=== PATIENT | female | born 1940 | race Caucasian/White ===

== ENCOUNTER 2017-08-20 05:52 | Inpatient (IN) | payer MEDICARE, BC ==
[2017-08-20 06:25] LABS: #Eosinphils 0.2 thou/uL (0.0-0.7); #Lymphocytes 0.7 thou/uL (1.20-3.40); #Neutrophils 12.8 thou/uL (1.40-6.50); %Basophils 0.1 % (0.0-1.0); %Eosinophils 1.1 % (0.0-10.0); %Lymphocytes 5.1 % (21.0-51.0); %Monocytes 6.8 % (0.0-10.0); Hemoglobin 16.6 g/dL (12.0-16.0); Mean Corpuscular HGB CONC 33.4 g/dL (32.0-36.0); Mean Corpuscular Hemoglobin 31.7 pg (27.0-31.0); Mean Corpuscular Volume 95.1 fl (81.0-99.0); Mean Platelet Volume 7.8 fL (7.4-10.4); Platelet Count 200 thou/uL (130-400); RBC Distribution Width 12.5 % (11.5-14.5); Red Blood Cell (RBC) Count 5.24 mill/uL (4.20-5.40); White Blood Cell (WBC) Count 14.7 thou/uL (4.8-10.8)
[2017-08-20 06:40] LABS: Bilirubin Negative (Negative); Blood, Urine Negative (Negative); Clarity CLEAR (Clear); Glucose, Urine (Dipstick) >=1000 mg/dL (Negative); Leukocyte Negative (Negative); Nitrite Negative (Negative); Protein, Urine (Dipstick) 30 mg/dL (Neg-Trace); Specific Gravity, Urine 1.016 (1.002-1.036); Urobilinogen 0.2 mg/dL (0.2-1.0); pH, Urine 6.5 (5.0-9.0)
[2017-08-20 06:43] LABS: Pathc Cast-AUWi Flag 0.67 (0-2.49); RBC/HPF 0-3 HPF (0-3); Squamous Epithelial 0-3 HPF (0-3); WBC/HPF 0-3 HPF (0-3)
[2017-08-20 06:45] LABS: ALT (SGPT) 32 U/L (8-55); AST (SGOT) 36 U/L (5-34); Albumin 4.3 g/dL (3.4-4.8); Alkaline Phosphatase 80 U/L (40-150); Anion Gap 20 mmol/L (10-20); BUN (Urea Nitrogen) 18 mg/dL (9.8-20.1); Bilirubin, Total 0.9 mg/dL (0.2-1.2); CK (CPK) 36 U/L (29-168); Calc. Creatinine Clearance 0 mL/min (70-130); Calcium 9.2 mg/dL (7.8-10.44); Carbon Dioxide 17 mmol/L (23-31); Chloride 100 mmol/L (98-107); Estimated GFR-MDRD 40; Globulin 3.3 g/dL (2.4-3.5); Glucose 358 mg/dL (83-110); Lipase 31 U/L (8-78); Potassium 5.1 mmol/L (3.5-5.1); Protein, Total 7.6 g/dL (6.0-8.3); Sodium 132 mmol/L (136-145)
[2017-08-20 06:50] LABS: CKMB 0.6 ng/mL (0-6.6); Troponin I Less than 0.010 ng/mL (< 0.028)
[2017-08-20 06:52] LABS: Hyaline Casts/LPF 0-3 HYALINE CAST LPF (0-3 Hyaline)
[2017-08-20 06:53] LABS: Bacteria/HPF Rare-Few HPF (None Seen); Renal Epithelial None Seen HPF (0-3); Transitional Epithelial 0-3 HPF (0-3)
[2017-08-20 07:21] LABS: Base Excess-Venous -3.6 mmol/L (-30.0-30.0); Bicarbonate (HCO3v) 22.5 mmol/L (1.0-85.0); CO2 Tension (PvCO2) 43.5 mmHg (41.0-51.0); Calcium, Ionized 1.08 mmol/L (1.12-1.32); Hemoglobin - Calc 15.6 g/dL (12.0-18.0); O2 Tension (PvO2) 30.7 mmHg (35.0-45.0); Potassium 5.5 mmol/L (3.4-4.7); T. Carbon Dioxide 23.8 mmol/L (1.0-85.0); pH (Venous) 7.322 (7.35-7.45); vO2 Saturation-calc 53.7 % (0.0-100.0)
--- NOTE | 2017-08-20 08:12 | RAD ---
RADIOGRAPH CHEST 1 VIEW: HISTORY: 77-year-old female with generalized weakness and dehydration. FINDINGS: There are no air space densities, pulmonary edema, pneumothorax, or cardiomegaly. The lateral costop hrenic angles are sharp. IMPRESSION: 1. No acute cardiopulmonary findings. 2. Left subclavian pacemaker. aleksandar laguna POS: ANTONIO
[2017-08-20] MEDS ORDERED: Mag-Al 1200 mg/1200 mg/30 ML UDCUP PO PRN (09:44)
[2017-08-20] MEDS ORDERED: Milk Of Magnesia 30 ML UDCUP PO PRN (09:44)
[2017-08-20] MEDS ORDERED: Dextrose 5% in Water 1,000 ML IV PRN (09:44)
[2017-08-20] MEDS ORDERED: Dextrose 50% Abboject 50 ML SYRINGE SLOW IVP PRN (09:44)
[2017-08-20] MEDS ORDERED: Acetaminophen 325 MG TAB PO PRN ×2 (09:44→09:45)
[2017-08-20] MEDS ORDERED: hydrALAZINE 20 MG/ML VIAL SLOW IVP PRN (09:44)
[2017-08-20] MEDS ORDERED: Sodium Chloride 0.9% 1,000 ML IV SCH (09:44)
[2017-08-20] MEDS ORDERED: HumaLOG 300 UNITS/3 ML VIAL SC PRN (09:44)
[2017-08-20] MEDS ORDERED: Ondansetron ODT 4 MG TAB SL PRN (09:45)
[2017-08-20] MEDS ORDERED: Ondansetron HCl/PF 4 MG/2 ML Vial IVP PRN (09:45)
[2017-08-20 10:01] LABS: Troponin I 0.021 ng/mL (< 0.028)
[2017-08-20] MEDS ORDERED: Enoxaparin Sodium 30 MG/0.3 ML SYRINGE SC SCH (10:15)
[2017-08-20] MEDS ORDERED: Famotidine 20 MG TAB PO SCH (10:30)
[2017-08-20 10:51] VITALS: BMI 27.4
[2017-08-20] MEDS: Sodium Chloride 0.9% 1,000 ML IV SCH ×2 (12:11→21:13)
[2017-08-20 13:12] LABS: Troponin I Less than 0.010 ng/mL (< 0.028)
[2017-08-20] MEDS ORDERED: FLU VACC TS2017-18 (>65YR) 0.5 ML SYRINGE IM ONE (14:00)
--- NOTE | 2017-08-20 14:00 | HP ---
PRIMARY CARE PHYSICIAN: The patient does not have a primary care physician. She sees Dr. Shorty lord or her primary. CHIEF COMPLAINT: "I could not get up." HISTORY OF PRESENT ILLNESS: Ms. Farmer is a pleasant 77-year-old female that has a history of atria l fibrillation, diabetes mellitus, and hypothyroidism. She was in her usual state of health until ab out 2 days ago when she began having diarrhea. She has some degree of dementia, so she is unable to give me a quantitative assessment of how much. Her is at the bedside and says that he and hi s son had quite a bit of diarrhea for the last week and says that she had less, but over the past 2 d ays. She says it was watery, but there was no blood. She did have some cramping abdominal pain. No fevers or chills. No nausea or vomiting and she was on the commode early this morning around 3:30-4 :00 a.m. and could not get up from the seated position. They called EMS and brought her to the emerg ency room for evaluation. In the ER, it was found that she has a slightly elevated white blood cell count. Her creatinine is slightly elevated as well and her potassium and she is being placed on obse rvation. REVIEW OF SYSTEMS: Constitutional: No fevers or chills, no night sweats, no weight loss. HEENT: N o headaches, no dizziness, no visual changes, no sore throat, rhinorrhea, neck pain, no adenopathy. Pulmonary: No hemoptysis, no cough, no wheezing. Cardiovascular: No chest pain, no shortness of br eath, no PND, no orthopnea. Gastrointestinal: She did have some cramping abdominal pain, but no ninfa sea, no vomiting, and diarrhea as previously mentioned. Genitourinary: No urinary frequency, hematu maksim, or hesitancy. Neurologic: No focal weakness or numbness, no seizures. Psychiatric: No sympto ms of anxiety or depression. Skin and Integument: No skin changes. No rash. PAST MEDICAL HISTORY: Significant for atrial fibrillation, diabetes mellitus, hyperlipidemia, hypert ension, hypothyroidism, and dementia. PAST SURGICAL HISTORY: She has had a C-spine surgery, cholecystectomy, hysterectomy, tonsillectomy, left thumb surgery, right shoulder surgery. ALLERGIES: No known drug allergies. SOCIAL HISTORY: She lives at home with family. She is a former smoker, no drug use, no alcohol use. FAMILY HISTORY: Unknown, as she is adopted. MEDICATIONS: Her says these are only some of them and they include donepezil 10 mg daily, fe nofibrate 160 mg daily, propafenone 225 mg q.8 hours, glimepiride 4 mg daily, digoxin 0.125 mg daily, and risperidone 0.5 mg daily. PHYSICAL EXAMINATION: GENERAL: She is alert and oriented to person and place. VITAL SIGNS: Her blood pressure initially was 86/60, currently 130/50; heart rate 81; respiratory ra te of 16; temperature is 98.4. HEENT: Pupils are equal, round, and reactive. Extraocular muscles are intact. Sclerae are anicteri c. Throat, no erythema, no exudates. NECK: No adenopathy, no bruits. LUNGS: Clear. There is no wheezing and no rales. CARDIOVASCULAR: She has a normal S1 and S2. No S3 or S4. No murmurs, clicks, or rubs. ABDOMEN: Soft, nontender, nondistended. Positive for bowel sounds. There is no rebound or guarding . EXTREMITIES: There is no clubbing or cyanosis, no edema. NEUROLOGICALLY: The exam is grossly nonfocal with muscle strength is 5/5 in both her upper and lower extremities. LABORATORY RESULTS: Sodium 136, potassium 5.5, chloride is 103, CO2 is 17, BUN of 18, creatinine 1.2 8, glucose is 358. White blood cell count 14.7, hemoglobin 16.6, hematocrit is 49.8, platelet count is 200. The patient's EKG was sinus rhythm with some nonspecific ST-wave changes. Chest x-ray, the heart size appears normal with no infiltrate or effusions and this is by my reading. ASSESSMENT AND PLAN: This is a 77-year-old female that presents with what appears to be generalized weakness, following 2 days of diarrhea off and on. I suspect the weakness is likely as a result of s ome mild dehydration. Her creatinine is slightly elevated than her baseline, and also her potassium is slightly elevated, and this is likely as a result of volume depletion. She will be placed on obse rvation. We will give her another liter of IV fluids, get a PT and OT consult, and reevaluate her af ter she has been hydrated with regard to her general strength. We will also get a thyroid function t est if this has not already been done in the ER. Stool studies if obtainable. We will restart her u sual medications for diabetes mellitus, along with a sliding scale insulin, and we will need to obtai n the dose of her thyroid medication and restart this as appropriate as well.
[2017-08-20] MEDS ORDERED: Digoxin 0.5 MG/2 ML AMP SLOW IVP SCH (16:30)
[2017-08-20] MEDS: Glimepiride 4 MG TAB PO SCH (17:08)
[2017-08-20] MEDS: HumaLOG 300 UNITS/3 ML VIAL SC PRN (17:40)
[2017-08-20] MEDS: Vancomycin HCl 25 MG/ML Oral PO SCH ×2 (17:42→22:26)
[2017-08-20] MEDS ORDERED: Metoprolol Tartrate 5 MG/5 ML VIAL IVP SCH (18:15)
[2017-08-20] MEDS ORDERED: Vancomycin HCl 25 MG/ML Oral PO SCH (21:00)
[2017-08-20] MEDS: Propafenone HCl 150 MG TAB PO SCH (22:26)
[2017-08-20] MEDS: Apixaban 5 MG TAB PO SCH (22:26)
[2017-08-20] MEDS: Donepezil HCl 10 MG TAB PO SCH (22:27)
[2017-08-20] MEDS: Liothyronine Sodium 5 MCG TAB PO SCH (22:27)
[2017-08-21] MEDS: Propafenone HCl 150 MG TAB PO SCH ×2 (05:49→13:24)
[2017-08-21] MEDS: HumaLOG 300 UNITS/3 ML VIAL SC PRN ×3 (05:54→16:55)
[2017-08-21 05:55] LABS: #Eosinphils 0.1 thou/uL (0.0-0.7); #Lymphocytes 1.1 thou/uL (1.20-3.40); #Monocytes 0.9 thou/uL (0.11-0.59); #Neutrophils 4.2 thou/uL (1.40-6.50); %Basophils 0.2 % (0.0-1.0); %Eosinophils 1.4 % (0.0-10.0); %Lymphocytes 17.6 % (21.0-51.0); %Monocytes 13.7 % (0.0-10.0); %Neutrophils 67.1 % (42.0-75.0); Hemoglobin 14.5 g/dL (12.0-16.0); Mean Corpuscular HGB CONC 32.6 g/dL (32.0-36.0); Mean Corpuscular Hemoglobin 31.6 pg (27.0-31.0); Mean Corpuscular Volume 96.9 fl (81.0-99.0); Platelet Count 193 thou/uL (130-400); RBC Distribution Width 12.6 % (11.5-14.5); White Blood Cell (WBC) Count 6.3 thou/uL (4.8-10.8)
[2017-08-21 06:16] LABS: Anion Gap 13 mmol/L (10-20); BUN (Urea Nitrogen) 12 mg/dL (9.8-20.1); Calc. Creatinine Clearance 90 mL/min (70-130); Calcium 8.5 mg/dL (7.8-10.44); Carbon Dioxide 19 mmol/L (23-31); Chloride 109 mmol/L (98-107); Estimated GFR-MDRD 61; Glucose 251 mg/dL (83-110); Potassium 4.5 mmol/L (3.5-5.1); Sodium 136 mmol/L (136-145)
[2017-08-21] MEDS ORDERED: Enoxaparin Sodium 30 MG/0.3 ML SYRINGE SC SCH (09:00)
[2017-08-21] MEDS: Famotidine 20 MG TAB PO SCH (10:41)
[2017-08-21] MEDS: Fenofibrate Nanocrystallized 145 MG TAB PO SCH (10:41)
[2017-08-21] MEDS: Liothyronine Sodium 5 MCG TAB PO SCH ×2 (10:41→20:46)
[2017-08-21] MEDS: Atorvastatin Calcium 40 MG TAB PO SCH (10:42)
[2017-08-21] MEDS: Apixaban 5 MG TAB PO SCH ×2 (10:42→20:46)
[2017-08-21] MEDS: Vancomycin HCl 25 MG/ML Oral PO SCH ×4 (10:43→20:47)
[2017-08-21] MEDS: Digoxin 0.125 MG TAB PO SCH (10:43)
[2017-08-21] MEDS: Glimepiride 4 MG TAB PO SCH ×2 (10:44→16:54)
--- NOTE | 2017-08-21 12:00 | PDOC.PN ---
- Subjective Encounter Start Date: 08/21/17 Encounter Start Time: 11:58 Ms. Farmer was seen today in follow-up. She does not have any complaints today. She had a few loose stools this morning, but it has improved. - Objective Resuscitation Status: Resuscitation Status FULL:Full Resuscitation MAR Reviewed: Yes Vital Signs & Weight: Vital Signs (12 hours) Temp Pulse Resp BP BP BP BP 08/21/17 10:43 67 08/21/17 09:35 110/66 116/66 112/66 118/68 08/21/17 08:00 97.5 F L 60 20 08/21/17 04:35 97.8 F 65 16 BP Pulse Ox 08/21/17 10:43 08/21/17 09:35 08/21/17 08:00 105/40 L 93 L 08/21/17 04:35 119/51 L 95 Weight Weight 245 lb I&O: 08/20/17 08/21/17 08/22/17 06:59 06:59 06:59 Intake Total 3191 Balance 3191 Result Diagrams: 08/21/17 04:55 08/21/17 04:55 Additional Labs: Accuchecks 08/21/17 08/21/17 08/20/17 10:52 05:55 22:23 POC Glucose 226 H 245 H 224 H 08/20/17 17:06 POC Glucose 232 H Phys Exam - Physical Examination HEENT: PERRLA Respiratory: no wheezing, no rales, no rhonchi, clear to auscultation bilateral Cardiovascular: RRR, no significant murmur Gastrointestinal: soft, non-tender, positive bowel sounds Musculoskeletal: no edema Dx/Plan (1) C. difficile diarrhea Code(s): A04.72 - ENTEROCOLITIS D/T CLOSTRIDIUM DIFFICILE, NOT SPCF RECUR Status: Acute (2) Generalized weakness Code(s): R53.1 - WEAKNESS Status: Acute (3) Afib Code(s): I48.91 - UNSPECIFIED ATRIAL FIBRILLATION Status: Acute (4) Dementia Code(s): F03.90 - UNSPECIFIED DEMENTIA WITHOUT BEHAVIORAL DISTURBANCE Status: Acute - Plan * C. Diff diarrhea- she is reported to have less stools this morning * AFIB- she had an episode of RVR last night- which has improved- this was likely because she missed a dose of her medications * Generalized weakness- improved * Hopefully home this evening or tomorrow.
[2017-08-21] MEDS ORDERED: Ondansetron HCl/PF 4 MG/2 ML Vial IVP PRN (16:18)
[2017-08-21] MEDS ORDERED: Ondansetron ODT 4 MG TAB PO PRN (16:18)
[2017-08-21] MEDS: Donepezil HCl 10 MG TAB PO SCH (20:46)
[2017-08-21] MEDS: risperiDONE 1 MG TAB PO SCH (20:46)
[2017-08-21] MEDS: Amiodarone 200 MG TAB PO SCH (20:46)
--- NOTE | 2017-08-22 04:11 | CON ---
DATE OF CONSULTATION: 08/21/2017 HISTORY: Amanda Lewis is a 77-year-old white female that I initially evaluated in 10/1999. At that time, she began to have some chest burning radiating to her right arm and elbow. This would occur while she was driving to work and lasted for many hours. She went to the emergency room and was seen by her physician Dr. Bailey. Apparently, her cardiac enzymes were normal. The following day, she underwent treadmill testing. She had inverted T-waves in aVL in the rest EKG. She exercised for 6 minutes 11 seconds. At 5 minutes and 50 seconds, she begin to have the same type of chest discomfort with approximately [address] segment depression in leads II, III, F, V4, V5 and V6, which resolved within 2 minutes. Her pain also resolved within 2 minutes into recovery. She was placed on aspirin and metoprolol and referred for further evaluation. The following day, she had an episode that awakened her at night, radiating to her back and apparently lasted all night. She denies any nausea, vomiting, diaphoresis or shortness of breath. She underwent catheterization, had normal left ventricular function with ejection fraction of 55% to 60%. There was a 40% proximal LAD lesion, but otherwise unremarkable coronary arteries. It was felt that her chest discomfort was not cardiac in nature. She had some pleuritic component to the pain as well as pain lasting 10 to 12 hours and is felt this is probably more chest wall in nature. I continued to rarely see her over the years. In 12/2008, she complained of chest discomfort, which seemed more chest wall in nature. She was placed on ibuprofen. In 03/2009, she was seen and not having any further chest discomfort. I did not see her from 2008 until she was admitted in 09/2014. Two weeks prior to that admission, she was supine in bed, had a feeling of palpitations. She described feeling of her heart pounding, but it did not seem to be very fast. She was asked multiple times and both the patient and her denied that she had any chest discomfort at that time. This would last approximately 1 minute and her thinks it was related to her anger issues and once he was able to calm her down, this resolved. When she was admitted in 09/2014, she had an episode of syncope. She also had episodes of syncope in 1985 or 1986 when she was unresponsive for several minutes. Her states that the current episode in 09/2014 was somewhat similar. She had gotten a prescription from a psychiatrist that she had been seeing regarding her dementia and anger issues. They were at [facility] to pick this up and apparently she fell to the ground. Her stated that it seemed like she was not breathing. No one palpated for a pulse. She did not have any fecal or urinary incontinence. There were no tonic-clonic movements and no tongue biting. She was apparently unresponsive for 3 to 4 minutes and then regained consciousness and was alert and oriented. Cardiac enzymes and serial EKGs were unremarkable. She did have mild sinus bradycardia with heart rates in the 50s. Echo revealed normal left ventricular function with evidence of diastolic dysfunction. There was mild mitral regurgitation and mild tricuspid regurgitation. CT of the brain in the emergency room was unremarkable. Chest CT revealed lymphadenopathy and also coronary artery calcification. There was no evidence of pulmonary embolism. She was seen by Electrophysiology and an implantable loop recorder was placed. On monitoring the implantable loop recorder, trout farmer found that she had a 4-second pause. She also had frequent episodes of atrial fibrillation, some lasting up to 6 hours and she was placed on Eliquis. She came to the office for followup and was found to be in atrial fibrillation with fast ventricular response of 171 per minute. She denied any chest pain or shortness of breath. With obvious sick sinus syndrome, she was admitted from the office. Eliquis was held and pacemaker was placed. She was then placed on propafenone. In the hospital, this seemed to control her atrial fibrillation. There was some concern about Multaq given her newly psychotropic medications. Eliquis was restarted 5 days after pacemaker placement. She was then readmitted in early 01/2015. Her checked her pulse and blood pressure and noted that the heart rate was very fast. She also felt the heart rate being fast and ultimately came to the emergency room. She was in atrial fibrillation with rate of 177 per minute. Her device was interrogated. She had episodes of atrial fibrillation with rates as high as 194. Longest episode was one and a half hours with average ventricular rate of 135 per minute. Her dose of propafenone was increased to 225 t.i.d. Digoxin was added for better rate control when she would go into atrial fibrillation. She has continued to be follow in the office since that time. Her dose of metoprolol has been gradually increased, trying to slow her atrial fibrillation rate whenever she would develop that. In 02/2017, propafenone was discontinued since she continued to have episodes of heart rates up to 200 per minute. She was placed on Multaq 400 b.i.d. But when she was seen again in the office in on the pacemaker, she continued to have episodes of fast ventricular rate. We discussed the possibility of AV node ablation. She now is admitted with 2 to 3 days of watery diarrhea and mild dehydration. She denies any chest pain or shortness of breath. It has been noted on the monitor that she has episodes of atrial fibrillation with fast ventricular response with rates up to 150s to 160s. Pacemaker was interrogated and she has 2.7% atrial fibrillation burden since she was last checked on 07/20/2017. She has had 34 episodes of atrial fibrillation, the longest being 9 hours and 13 minutes. At times she did have heart rates up to 180 per minute. She denies any chest pains, palpitations or shortness of breath. PAST MEDICAL HISTORY: Diabetes, mildly elevated cholesterol, history of hypertension, coronary artery disease, hypothyroidism, and dementia. OPERATIONS: Cervical spine surgery, pacemaker placement, cholecystectomy, hysterectomy, tonsillectomy, left thumb surgery and right shoulder surgery. MEDICATIONS: Multaq 400 mg b.i.d. (she is not on the propafenone 225 t.i.d. as listed on her admission medications), Eliquis 5 b.i.d., metoprolol 200 daily, sertraline 50 daily, liothyronine 5 mcg b.i.d., atorvastatin 40 daily, glimepiride 4 mg b.i.d., TriCor 160 daily, digoxin 0.125 daily, Risperdal 0.5 at bedtime, donepezil 10 mg at bedtime, and vancomycin 125 mg q.i.d. SOCIAL HISTORY: She smoked 3 packs per day for 6 years, stopped 47 years ago. She does not drink. 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 FAMILY HISTORY: She was told that she was adopted; however, she states she is uncertain if that was true. REVIEW OF SYSTEMS: Twelve point review of systems is otherwise unremarkable. PHYSICAL EXAMINATION: VITAL SIGNS: Blood pressure 147/62, pulse of 60 atrially paced. HEENT: PERRL. NECK: Supple. CHEST: Clear. CARDIAC: S1 and S2 are normal without any S3, S4 or murmurs. ABDOMEN: Normal bowel sounds without tenderness, organomegaly or masses. EXTREMITIES: Revealed no clubbing, cyanosis or edema. NEUROLOGIC: Grossly intact. SKIN: Warm and dry. LABORATORY DATA: EKG reveals normal sinus rhythm, poor R-wave progression. Hemoglobin 14.5, hematocrit 44.6, white count 6300, platelets 193,000. Sodium 136, potassium 4.5, chloride 109, carbon dioxide 19, BUN 12, creatinine 0.89. Cardiac enzymes were unremarkable. IMPRESSION: 1. Sick sinus syndrome with pauses up to 4.0 seconds with pacemaker placement as well as episodes of atrial fibrillation with fast ventricular response, which is difficult to control. She is on maximum dose of metoprolol and also is on digoxin. 2. History of syncope prior to pacemaker placement probably due to the sinus pauses. 3. Minimal coronary artery disease with 40% left anterior descending lesion on catheterization in the past. 4. Hypertension. 5. Hyperlipidemia. 6. Diabetes. 7. Former smoker. 8. Dementia. 9. Obesity. 10. Hypothyroidism. 11. Diarrhea. PLAN: Mrs. Farmer appears to have failed both propafenone and Multaq. We discussed options of trial of amiodarone versus atrial fibrillation ablation versus ablation of AV node. I feel our best option at this time would be try to maintain sinus rhythm with amiodarone. She hardly ever paces her ventricle and if she underwent AV node ablation then she would probably be 100% pacer dependent. We also discussed the possibility of atrial fibrillation ablation. Multaq will be discontinued. She will be placed on amiodarone 400 mg t.i.d. She should continue to be monitored for another 2 to 3 days with amiodarone loading and then continue this as an outpatient. Risks of Amiodarone therapy were discussed with the patient and her -lung, liver and thyroid toxicities, including , etc. She understands and agrees to proceed with Amiodarone loading. MTDD
[2017-08-22 06:07] LABS: Digoxin 0.72 ng/mL (0.8-2.0)
[2017-08-22] MEDS: Apixaban 5 MG TAB PO SCH ×2 (09:49→22:08)
[2017-08-22] MEDS: Amiodarone 200 MG TAB PO SCH ×3 (09:49→22:11)
[2017-08-22] MEDS: Vancomycin HCl 25 MG/ML Oral PO SCH ×4 (09:49→22:07)
[2017-08-22] MEDS: Glimepiride 4 MG TAB PO SCH ×2 (09:49→17:25)
[2017-08-22] MEDS: Famotidine 20 MG TAB PO SCH (09:50)
[2017-08-22] MEDS: Atorvastatin Calcium 40 MG TAB PO SCH (09:50)
[2017-08-22] MEDS: Digoxin 0.125 MG TAB PO SCH (09:50)
[2017-08-22] MEDS: Fenofibrate Nanocrystallized 145 MG TAB PO SCH (09:51)
[2017-08-22] MEDS: Liothyronine Sodium 5 MCG TAB PO SCH ×2 (09:51→22:08)
--- NOTE | 2017-08-22 11:22 | PDOC.PN ---
- Subjective Encounter Start Date: 08/22/17 Encounter Start Time: 09:40 -: old records requested/rev Pt seen and examined, chart reviewed in its entirety, case discussed with family and nursing, this is my first visit with this patient. no CP or SOb, no palpitations, no n/v/D/C, no F/C, no cough or sputum production. Seen earlier by Dr Bonner, cleared to go home otmorrow AM if no afib overnight. 10 point ROS performed and neg for all systems except as per HPI - Objective Resuscitation Status: Resuscitation Status FULL:Full Resuscitation MAR Reviewed: Yes Vital Signs & Weight: Vital Signs (12 hours) Temp Pulse Resp BP Pulse Ox 08/22/17 09:57 97.8 F 67 17 149/72 H 92 L 08/22/17 09:50 67 08/22/17 04:00 97.8 F 60 18 138/62 92 L 08/22/17 00:00 97.6 F 61 20 152/70 H 93 L Weight Weight 178 lb 11.2 oz I&O: 08/21/17 08/22/17 08/23/17 06:59 06:59 06:59 Intake Total 3191 1130 Balance 3191 1130 Result Diagrams: 08/21/17 04:55 08/21/17 04:55 Additional Labs: Accuchecks 08/22/17 08/21/17 08/21/17 06:11 20:39 16:54 POC Glucose 156 H 193 H 193 H Radiology Reviewed by me: Yes EKG Reviewed by me: Yes Phys Exam - Physical Examination Constitutional: NAD HEENT: PERRLA, moist MMs, sclera anicteric, oral pharynx no lesions Neck: no nodes, no JVD, supple, full ROM Respiratory: no wheezing, no rales, no rhonchi, clear to auscultation bilateral Cardiovascular: RRR, no significant murmur, no rub Gastrointestinal: soft, non-tender, no distention, positive bowel sounds Musculoskeletal: no edema, pulses present Neurological: non-focal, normal sensation, moves all 4 limbs Lymphatic: no nodes Psychiatric: normal affect, A&O x 3 Skin: no rash, normal turgor, cap refill <2 seconds Dx/Plan (1) Afib Code(s): I48.91 - UNSPECIFIED ATRIAL FIBRILLATION Status: Acute Qualifiers: Atrial fibrillation type: paroxysmal Qualified Code(s): I48.0 - Paroxysmal atrial fibrillation Comment: paced, in SR/paced rhythm. d/C in AM if no afib overnight (2) C. difficile diarrhea Code(s): A04.72 - ENTEROCOLITIS D/T CLOSTRIDIUM DIFFICILE, NOT SPCF RECUR Status: Acute Comment: on rx. dirrhea much better. out less than in (3) Dementia Code(s): F03.90 - UNSPECIFIED DEMENTIA WITHOUT BEHAVIORAL DISTURBANCE Status: Acute Qualifiers: Dementia type: unspecified type Dementia behavioral disturbance: without behavioral disturbance Qualified Code(s): F03.90 - Unspecified dementia without behavioral disturbance (4) Generalized weakness Code(s): R53.1 - WEAKNESS Status: Acute Comment: Pt/Ot, pt needs to get up (5) Sick sinus syndrome Code(s): I49.5 - SICK SINUS SYNDROME Status: Acute (6) Status post placement of implantable loop recorder Code(s): Z95.818 - PRESENCE OF OTHER CARDIAC IMPLANTS AND GRAFTS Status: Acute (7) Syncope Code(s): R55 - SYNCOPE AND COLLAPSE Status: Acute Qualifiers: Syncope type: unspecified Qualified Code(s): R55 - Syncope and collapse - Plan cont current plan of care, continue antibiotics, PT/OT, out of bed/ambulate * .
[2017-08-22] MEDS: HumaLOG 300 UNITS/3 ML VIAL SC PRN ×2 (13:15→17:26)
[2017-08-22] MEDS: Donepezil HCl 10 MG TAB PO SCH (22:08)
[2017-08-22] MEDS: risperiDONE 1 MG TAB PO SCH (22:08)
[2017-08-23 05:59] LABS: Hemoglobin 14.3 g/dL (12.0-16.0); Platelet Count 240 thou/uL (130-400)
[2017-08-23 06:21] LABS: Anion Gap 12 mmol/L (10-20); BUN (Urea Nitrogen) 11 mg/dL (9.8-20.1); Calc. Creatinine Clearance 66 mL/min (70-130); Calcium 9.2 mg/dL (7.8-10.44); Carbon Dioxide 28 mmol/L (23-31); Cardiac Risk 4.3 (Less than 4.5); Chloride 105 mmol/L (98-107); Cholesterol 100 mg/dl (< 200 Desired); Estimated GFR-MDRD 64; Glucose 151 mg/dL (83-110); HDL Cholesterol 23 mg/dL (>60 Neg Risk); LDL Cholesterol, Calculated 49 mg/dL; Potassium 3.9 mmol/L (3.5-5.1); Sodium 141 mmol/L (136-145); Triglycerides 139 mg/dL (Less than 150)
[2017-08-23] MEDS: Apixaban 5 MG TAB PO SCH (08:58)
[2017-08-23] MEDS: Liothyronine Sodium 5 MCG TAB PO SCH (08:59)
[2017-08-23] MEDS: Digoxin 0.125 MG TAB PO SCH (08:59)
[2017-08-23] MEDS: Fenofibrate Nanocrystallized 145 MG TAB PO SCH (09:00)
[2017-08-23] MEDS: Amiodarone 200 MG TAB PO SCH (09:00)
[2017-08-23] MEDS: Famotidine 20 MG TAB PO SCH (09:01)
[2017-08-23] MEDS: Atorvastatin Calcium 40 MG TAB PO SCH (09:01)
[2017-08-23] MEDS: Vancomycin HCl 25 MG/ML Oral PO SCH (09:02)
[2017-08-23] MEDS: Glimepiride 4 MG TAB PO SCH (09:02)
[2017-08-23 09:11] VITALS: TEMP 97.5
[2017-08-23] MEDS: HumaLOG 300 UNITS/3 ML VIAL SC PRN (11:55)
[2017-08-23 13:22] VITALS: BP 109/50
--- NOTE | 2017-08-23 14:20 | DIS ---
DATE OF ADMISSION: 08/20/2017 DATE OF DISCHARGE: 08/23/2017 PRIMARY CARE PHYSICIAN: Dr. Allan Oro. PRIMARY STRAIGHT LINE EDGER: Dr. Mark Bonner. DISCHARGE DIAGNOSES: 1. Paroxysmal atrial fibrillation. 2. Clostridium difficile colitis. 3. Moderate dehydration. 4. Metabolic encephalopathy. 5. Syncope and collapse. 6. Sick sinus syndrome. 7. Dementia. 8. Physical deconditioning. CONSULTATIONS: Cardiology, Dr. Mark Bonner, on 08/21/2017. PROCEDURES: None. HISTORY AND PHYSICAL: Ms. Farmer is a pleasant 77-year-old female, who was brought in for feeling t oo weak to get up. She was having diarrhea for about 2 days, and was subsequently brought to the emergency department fo r evaluation. She was having watery diarrhea, but no blood. She was having abdominal cramps and jus t could not get up from a seated position after multiple episodes. In the ER, she was found to have elevated white blood cell count and creatinine was up from her basel ine. We were subsequently called for admit. HOSPITAL COURSE: The patient was seen and examined by Dr. Román Kelly and placed on inpatient status . Stool studies were obtained that eventually came back positive for C. difficile colitis. She was started on vancomycin 125 mg p.o. q.i.d. Heart rate was elevated on admission. She was found to be in atrial fibrillation with RVR, so Cardio logy was consulted. Patient did fairly well from 08/20/2017-08/21/2017. She was seen by Dr. Mark Bonner in 8, and the patient was begun to be loaded on amiodarone. Heart rate became controlled, and on followup 08/22, the patient was improved and actually in sinus r hythm. Diarrhea had markedly improved and the patient was feeling much better. She was able to get up and walk around with Physical Therapy. By 08/23, patient was back in atrial fibrillation, Cardiology [facility] and continue loading of amiodarone and her diarrhea was well controlled. Physical therapy cleared to walk around, cleared her activity to be ad john. She was subsequently dis charged with outpatient followup. PHYSICAL EXAMINATION: The patient was seen and examined on the day of discharge. Discharge plan and disposition was discussed with the patient [id number] at the bedside with her hu sband. DISCHARGE MEDICATIONS: 1. Amiodarone 400 mg p.o. t.i.d. 2. Eliquis 5 mg p.o. b.i.d. 3. Atorvastatin 40 mg p.o. at bedtime. 4. Digoxin 0.125 mg p.o. daily. 5. Donepezil 10 mg p.o. at bedtime. 6. Fenofibrate 160 mg p.o. daily. 7. Glimepiride 4 mg p.o. b.i.d. with meals. 8. Liothyronine 5 mcg p.o. b.i.d. 9. Metoprolol succinate 200 mg p.o. daily. 10. Risperdal 0.5 mg p.o. at bedtime. 11. Sertraline 50 mg p.o. daily. 12. Vancomycin 125 mg p.o. q.i.d. for 10 days. FOLLOWUP APPOINTMENTS: 1. Primary care physician within a week. 2. Dr. Mark Bonner in 10 days. DISCHARGE ACTIVITY: Per cardiopulmonary limits. DISCHARGE DIET: Heart healthy, diabetic recommended. DISCHARGE CONDITION: Stable. DISPOSITION: To be discharged home via private vehicle with her .
--- NOTE | 2017-09-02 20:25 | EKG ---
Test Reason : Blood Pressure : / mmHG Vent. Rate : 084 BPM Atrial Rate : 084 BPM P-R Int : 152 ms QRS Dur : 068 ms QT Int : 368 ms P-R-T Axes : 050 022 054 degrees QTc Int : 434 ms Normal sinus rhythm Cannot rule out Anterior infarct , age undetermined Abnormal ECG Compared to ekg of 18-JUL-2015 Confirmed by ANOOP SIMMS MD ([id number]), newspaper editor KALI SMALLWOOD ([id number]) on 09/02/2017 8:25:06 PM Referred By: Confirmed By:ANOOP SIMMS MD
== END 2017-08-23 12:30 | disposition home or self-care (01) | DRG 371 ==
LOC: ERS 05:52 → ERHOLD 07:46 → 2SE 09:22
PROVIDERS: ADMIT Internal Medicine; ATTEND Internal Medicine
DX: A04.72 Enterocolitis due to Clostridium difficile, not specified as recurrent (principal); G93.41 Metabolic encephalopathy; I48.0 Paroxysmal atrial fibrillation; E86.0 Dehydration; E11.9 Type 2 diabetes mellitus without complications; F03.90 Unspecified dementia, unspecified severity, without behavioral disturbance, psychotic disturbance, mood disturbance, and anxiety; E78.5 Hyperlipidemia, unspecified; E66.9 Obesity, unspecified; E03.9 Hypothyroidism, unspecified; I10 Essential (primary) hypertension; Z87.891 Personal history of nicotine dependence; I25.10 Atherosclerotic heart disease of native coronary artery without angina pectoris; Z95.0 Presence of cardiac pacemaker; Z68.27 Body mass index [BMI] 27.0-27.9, adult
CPT/HCPCS: 36415; 36416; 51701; 71045; 80048; 80053; 80061; 80162; 81003; 81015; 82010; 82330; 82553; 82565; 82803; 83605; 83690; 83880; 84484; 85014; 85018; 85025; 85049; 87086; 87324; 87328; 87329; 87449; 87493; 90471; 90682; 93005; 96360; A4353; G0008; G8978-GP-CJ; G8979-GP-CJ; G8980-GP-CJ; G8987-GO-CI; G8988-GO-CI; G8989-GO-CI; J1160; J1650; J2405; Q2036

== ENCOUNTER 2018-04-09 10:51 | Outpatient (CLI) | payer MEDICARE, BC | END 2018-04-09 10:52 | disposition home or self-care (01) | LOC: BICMAMMO 10:51 | PROVIDERS: ATTEND Internal Medicine Endocrinology, Diabetes & Metabolism | DX: Z12.31 Encounter for screening mammogram for malignant neoplasm of breast (principal) | CPT/HCPCS: 77063; 77067 ==

== ENCOUNTER 2018-06-01 11:54 | Emergency (ER) | payer MEDICARE | END 2018-06-01 13:06 | disposition home or self-care (01) | LOC: SCSER 11:54 | DX: J06.9 Acute upper respiratory infection, unspecified (principal); E11.9 Type 2 diabetes mellitus without complications; I10 Essential (primary) hypertension; I48.91 Unspecified atrial fibrillation; F03.90 Unspecified dementia, unspecified severity, without behavioral disturbance, psychotic disturbance, mood disturbance, and anxiety; F41.9 Anxiety disorder, unspecified; F32.9 Major depressive disorder, single episode, unspecified | CPT/HCPCS: 99283 ==

== ENCOUNTER 2019-07-05 21:18 | Inpatient (IN) | payer MEDICARE ==
[2019-07-05 22:38] LABS: Bacteria/HPF None Seen HPF (None Seen); Bilirubin Negative (Negative); Blood, Urine Trace (Negative); Clarity Clear (Clear); Glucose, Urine (Dipstick) Greater than 1000 mg/dL (Negative); Leukocyte Negative Leu/uL (Negative); Nitrite Negative (Negative); Protein, Urine (Dipstick) 100 mg/dL (Neg-Trace); RBC/HPF 0-3 HPF (0-3); Squamous Epithelial 0-3 HPF (0-3); Urobilinogen Normal mg/dL (Less than 2); WBC/HPF 0-3 HPF (0-3)
--- NOTE | 2019-07-05 22:39 | RAD ---
PORTABLE UPRIGHT FRONTAL CHEST RADIOGRAPH: 07/05/19 COMPARISON: 08/20/17. HISTORY: Shortness of breath and dizziness. FINDINGS/IMPRESSION: Cardiac silhouette is enlarged. There is increased linear interstitial density in the perihilar regio ns in both lung bases which may signify mild interstitial edema in the proper clinical setting. Stabl e dual lead transvenous pacing device. Possible mild interstitial pulmonary edema. No focal consolidation or alveolar edema. POS: ANTONIO
[2019-07-05 22:44] LABS: #Eosinphils 0.2 thou/uL (0.0-0.7); #Lymphocytes 1.2 thou/uL (1.20-3.40); #Monocytes 0.8 thou/uL (0.11-0.59); #Neutrophils 8.7 thou/uL (1.40-6.50); %Basophils 0.2 % (0.0-1.0); %Eosinophils 1.7 % (0.0-10.0); %Lymphocytes 10.6 % (21.0-51.0); %Monocytes 7.1 % (0.0-10.0); %Neutrophils 80.3 % (42.0-75.0); Hemoglobin 14.2 g/dL (12.0-16.0); Mean Corpuscular HGB CONC 33.1 g/dL (32.0-36.0); Mean Corpuscular Hemoglobin 30.1 pg (27.0-31.0); Mean Corpuscular Volume 90.8 fL (78.0-98.0); Mean Platelet Volume 9.2 fL (7.4-10.4); Platelet Count 218 thou/uL (130-400); RBC Distribution Width 14.2 % (11.5-14.5); Red Blood Cell (RBC) Count 4.72 mill/uL (4.20-5.40); White Blood Cell (WBC) Count 10.8 thou/uL (4.8-10.8)
[2019-07-05 23:01] LABS: ALT (SGPT) 25 U/L (8-55); AST (SGOT) 19 U/L (5-34); Albumin 3.6 g/dL (3.4-4.8); Alkaline Phosphatase 123 U/L (40-110); Anion Gap 18 mmol/L (10-20); BUN (Urea Nitrogen) 14 mg/dL (9.8-20.1); Bilirubin, Total 0.6 mg/dL (0.2-1.2); Calc. Creatinine Clearance 0 mL/min (70-130); Calcium 8.8 mg/dL (7.8-10.44); Carbon Dioxide 18 mmol/L (23-31); Chloride 103 mmol/L (98-107); Estimated GFR-MDRD 38; Glucose 446 mg/dL (83-110); Potassium 4.1 mmol/L (3.5-5.1); Protein, Total 6.6 g/dL (6.0-8.3); Sodium 135 mmol/L (136-145)
[2019-07-05 23:02] LABS: Digoxin Less than 0.15 ng/mL (0.8-2.0)
[2019-07-05] MEDS ORDERED: cefTRIAXone\\ROCEPHIN 1 GM VIAL ONE (23:17)
[2019-07-05] MEDS ORDERED: Magnesium 2 GM/50 ML BAG (IN WATER) ONE (23:17)
[2019-07-06] MEDS ORDERED: Diltiazem 125 MG/25 ML ONE (00:24)
[2019-07-06] MEDS ORDERED: Furosemide 20 MG/2 ML VIAL ONE (00:41)
--- NOTE | 2019-07-06 01:47 | PDOC.FPRHP ---
- History of Present Illness Chief Complaint: Dyspnea History of Present Illness: Pt is an 79 yo female with PMH significant for a-fib, DM, mild dementia, and CHF who presents for shortness of breath. She began with SOB at home. Her son decided to call for an EMS who found her HR to be in the 140's-150's, a-fib w/ RVR. She was given dilt on the scene and transferred to the emergency department. A dilt drip was initiated controlled her shortness of breath. Upon further discussion with the son, he states his father was recently in the hospital and now at [facility]. He has been trying to take care of both of them but it has been difficult and he believes he forgot to give his mother some of her medications including digoxin. Pt denied any chest pain, shortness during the interview. She is followed by Dr. Bonner, cardiology. Pt also has a lesion to her RLE, very minor, which she sustained while exiting her son's vehicle. ED Course: In the emergency department pt was started on a dilt drip for atrial fibrillation. Rate was controlled in the 90's after initiation. She was found to have BNP 331, LE edema so given Lasix 20 IV once. Mild increase in creatinine to 1.33. D-dimer was elevated with negative CTA. Dig level, home medication, was found to be supratherapeutic. Dig was not restarted. Pt did have a RLE cellulitis, rocephin started. - Allergies/Adverse Reactions Allergies Allergy/AdvReac Type Severity Reaction Status Date / Time No Known Allergies Allergy Verified 01/06/15 22:32 - Home Medications Medication Instructions Recorded Confirmed Type Fenofibrate [Tricor] 160 mg PO DAILY 09/16/14 08/20/17 History risperiDONE [RisperDAL] 0.5 mg PO HS 09/16/14 08/20/17 History Digoxin [Lanoxin] 0.125 mg PO DAILY #30 tab 01/09/15 08/20/17 Rx Apixaban [Eliquis] 5 mg PO BID 08/20/17 08/20/17 History Atorvastatin Calcium 40 mg PO DAILY 08/20/17 08/20/17 History Donepezil HCl 10 mg PO HS 08/20/17 08/20/17 History Glimepiride 4 mg PO BID-WM 08/20/17 08/20/17 History Liothyronine Sodium 5 mcg PO BID 08/20/17 08/20/17 History Metoprolol Succinate 200 mg PO DAILY 08/20/17 08/20/17 History Sertraline HCl 50 mg PO DAILY 08/20/17 08/20/17 History Vancomycin HCl [First Vancomycin] 125 mg PO QID 10 Days #250 ml 08/21/17 Rx Amiodarone [Cordarone] 400 mg PO TID #0 tab 08/23/17 Rx Vancomycin HCl 250 mg PO QID #28 capsule 08/25/17 Rx - History PMHx: a-fib, DM, dementia, CHF PSHx: Pacemaker, cholecystectomy, Hysterectomy, L shoulder repair FHx: non-contributory Social: denies alcohol, drugs, tobacco; lives with son, - Review of Systems General: denies: fever/chills, weight/appetite/sleep changes Eyes: denies: eye pain, vision changes ENT: denies: nasal congestion, rhinorrhea Respiratory: denies: cough, congestion, shortness of breath Cardiovascular: reports: palpitation. denies: chest pain Gastrointestinal: denies: nausea, vomiting, diarrhea, constipation Neurological: denies: numbness, syncope Psychological: denies: anxiety, depression - Vital signs BP: 109/18 HR: 100's RR: 16 Tmax: 98.5 Pox: 96% on RA Wt: 81.7 kg - Physical Exam Constitutional: NAD, awake, alert and oriented HEENT: PERRLA, EOMI Neck: FROM, trachea midline Heart: no murmurs/rubs/gallops, pulses present -Heart: irregular rate and rhythm; 2+ pitting edema bilaterally Lungs: CTAB, no respiratory distress Abdomen: soft, non-tender Neurological: no focal deficit, CN II-XII intact Skin: no rash/lesions Heme/Lymphatic: no purpura, no petechia Psychiatric: good judgment and insight FMR H&P: Results - Labs Result Diagrams: 07/06/19 02:12 07/06/19 02:12 Lab results: WBC 10.8 thou/uL (4.8-10.8) 07/05/19 22:34 Hgb 14.2 g/dL (12.0-16.0) 07/05/19 22:34 Hct 42.9 % (36.0-47.0) 07/05/19 22:34 MCV 90.8 fL (78.0-98.0) 07/05/19 22:34 Plt Count 218 thou/uL (130-400) 07/05/19 22:34 Neutrophils % 80.3 % (42.0-75.0) H 07/05/19 22:34 Sodium 135 mmol/L (136-145) L 07/05/19 22:34 Potassium 4.1 mmol/L (3.5-5.1) 07/05/19 22:34 Chloride 103 mmol/L (98-107) 07/05/19 22:34 Carbon Dioxide 18 mmol/L (23-31) L 07/05/19 22:34 BUN 14 mg/dL (9.8-20.1) 07/05/19 22:34 Creatinine 1.33 mg/dL (0.6-1.1) H 07/05/19 22:34 Glucose 446 mg/dL (83-110) H 07/05/19 22:34 Calcium 8.8 mg/dL (7.8-10.44) 07/05/19 22:34 Total Bilirubin 0.6 mg/dL (0.2-1.2) 07/05/19 22:34 AST 19 U/L (5-34) 07/05/19 22:34 ALT 25 U/L (8-55) 07/05/19 22:34 Alkaline Phosphatase 123 U/L (40-110) H 07/05/19 22:34 B-Natriuretic Peptide 331.2 pg/mL (0-100) H 07/05/19 22:34 Serum Total Protein 6.6 g/dL (6.0-8.3) 07/05/19 22:34 Albumin 3.6 g/dL (3.4-4.8) 07/05/19 22:34 Urine Ketones Negative mg/dL (Negative) 07/05/19 21:53 Urine Blood Trace (Negative) A 07/05/19 21:53 Urine Nitrite Negative (Negative) 07/05/19 21:53 Ur Leukocyte Esterase Negative Davey/uL (Negative) 07/05/19 21:53 Urine RBC 0-3 HPF (0-3) 07/05/19 21:53 Urine WBC 0-3 HPF (0-3) 07/05/19 21:53 Ur Squamous Epith Cells 0-3 HPF (0-3) 07/05/19 21:53 Urine Bacteria None Seen HPF (None Seen) 07/05/19 21:53 - EKG Interpretation EKG: EKG revealed atrial fibrillation FMR H&P: A/P - Problem List (1) Diabetes mellitus Current Visit: Yes Status: Acute Code(s): E11.9 - TYPE 2 DIABETES MELLITUS WITHOUT COMPLICATIONS (2) Cellulitis Current Visit: Yes Status: Acute Code(s): L03.90 - CELLULITIS, UNSPECIFIED (3) Heart failure Current Visit: Yes Status: Acute Code(s): I50.9 - HEART FAILURE, UNSPECIFIED (4) Afib Current Visit: No Status: Acute Code(s): I48.91 - UNSPECIFIED ATRIAL FIBRILLATION Qualifiers: Atrial fibrillation type: paroxysmal Qualified Code(s): I48.0 - Paroxysmal atrial fibrillation Comment: paced, in SR/paced rhythm. d/C in AM if no afib overnight (5) Dementia Current Visit: No Status: Acute Code(s): F03.90 - UNSPECIFIED DEMENTIA WITHOUT BEHAVIORAL DISTURBANCE Qualifiers: Dementia type: unspecified type Dementia behavioral disturbance: without behavioral disturbance Qualified Code(s): F03.90 - Unspecified dementia without behavioral disturbance - Plan Mrs. Farmer is an 79 yo female who presents for atrial fibrillation. # Atrial Fibrillation Hx of a-fib but unsure the medications she is taking. Son did state he forgot to give doses of digoxin. Did not load dig or restart bc we did not know her regular dose, son was going to bring in medications later this morning. - continue dilt drip - restarted apixiban from and old med req - med req needed - trop negative - low digoxin level # Cellulitis Rocephin given in the emergency department - continue rocephin, next dose 2330 tonight, can change to PO # CHF Diastolic dysfunction in 2014 on echo. BNP elevated, likely secondary to atrial fibrillation. Lasix given in the emergency department. - did not continue lasix at this time but should consider another dose. # DM Med reconciliation needed - SSI # Mild Dementia AAO x 3 Fluids: none Diet: Low sodium VTE: Apixiban Code: Full Dispo: < 2 days FMR H&P: Upper Level - Plan Date/Time: 07/06/19 0145 I, Devin Colin MD, have evaluated this patient and agree with findings/plan as outlined by international exchange coordinator resident. Pertinent changes/additions are listed here. Amanda Farmer is an 79 year old F with a PMH of CHF, DM2, A fib, Dementia who presented to the ED for palpitations and dyspnea and dizziness that started earlier in the day. Has a history a fib and son manages medications and states that they have missed some doses of her medications recently because they have been busy. Pt's has been at rehab. When EMS arrived at home, patients HR was in the 180s. Pt given 20 mg bolus of cardizem and was started on maintenance gtt at 25 ml/hr. She was also given 1 L NS. Also notable, patient hit right lower extremity on running board of truck a couple weeks ago. For the last few days, she has had increased redness and pain around that wound. Denies fever, chills, drainage. HR improved in the ED and ranged in the 90s- 120s. EKG in ED showed A fib with RVR. No ST changes. Diltizem gtt was continued at 5 mg/hr. BPs remained stable in ED and symptoms improved. Labs significant for UA with >1000 gluc, protein 100, trace blood. WBC 10.8, Hg 14. Cr 1.33. Serum glucose 446. BNP 331, trop <0.01, Digoxin level < 0.15, D dimer 1.16. Patient's bridge instructor is Dr. Bonner. Will restart patient's digoxin and continue dilt gtt. Admit to inpatient tele. A fib with RVR likely 2/2 medication noncompliance and possible mild cellulitis. Continue rocephin for cellulitis. Please see international exchange coordinator note above for full H&P, which I have reviewed and agree with.
[2019-07-06] MEDS ORDERED: Dextrose 5% in Water 1,000 ML IV PRN (02:01)
[2019-07-06] MEDS ORDERED: Dextrose 50% Abboject 50 ML SYRINGE SLOW IVP PRN (02:01)
[2019-07-06 02:21] LABS: #Basophils 0.1 thou/uL (0.0-0.2); #Eosinphils 0.2 thou/uL (0.0-0.7); #Lymphocytes 1.3 thou/uL (1.20-3.40); #Monocytes 0.8 thou/uL (0.11-0.59); #Neutrophils 7.8 thou/uL (1.40-6.50); %Basophils 0.9 % (0.0-1.0); %Eosinophils 2.3 % (0.0-10.0); %Lymphocytes 12.6 % (21.0-51.0); %Monocytes 7.7 % (0.0-10.0); %Neutrophils 76.5 % (42.0-75.0); Hemoglobin 14.7 g/dL (12.0-16.0); Mean Corpuscular HGB CONC 33.2 g/dL (32.0-36.0); Mean Corpuscular Hemoglobin 29.8 pg (27.0-31.0); Mean Corpuscular Volume 89.7 fL (78.0-98.0); Mean Platelet Volume 8.8 fL (7.4-10.4); Platelet Count 257 thou/uL (130-400); RBC Distribution Width 14.2 % (11.5-14.5); Red Blood Cell (RBC) Count 4.92 mill/uL (4.20-5.40); White Blood Cell (WBC) Count 10.2 thou/uL (4.8-10.8)
[2019-07-06] MEDS ORDERED: Diltiazem 125 MG in Sodium Chloride 0.9% 100 ML IVPB SCH (02:30)
[2019-07-06 02:45] LABS: Anion Gap 19 mmol/L (10-20); BUN (Urea Nitrogen) 16 mg/dL (9.8-20.1); Calc. Creatinine Clearance 0 mL/min (70-130); Calcium 9.2 mg/dL (7.8-10.44); Carbon Dioxide 19 mmol/L (23-31); Chloride 102 mmol/L (98-107); Estimated GFR-MDRD 36; Glucose 462 mg/dL (83-110); Potassium 4.2 mmol/L (3.5-5.1); Sodium 136 mmol/L (136-145); Troponin I Less than 0.010 ng/mL (< 0.028)
[2019-07-06] MEDS ORDERED: HumaLOG 300 UNITS/3 ML VIAL ONE (05:55)
[2019-07-06 06:29] LABS: Troponin I Less than 0.010 ng/mL (< 0.028)
--- NOTE | 2019-07-06 07:53 | CT ---
PRELIMINARY REPORT/[facility]/EMERGENCY AFTER HOURS PROCEDURE EXAM: CTA Chest with Intravenous Contrast CLINICAL HISTORY: ELEVATED D-DIMER: 1.16; 79F reports to ED c/o palpitations and SOB. PMHx CHF, diabe christine, AFib, dementia. Pt reports associated vomited. Pt denies feeling sick recently. Pt bumped her ri bry sullivan on truck runner several days ago TECHNIQUE: Axial CTA images of the chest with intravenous contrast. MIP reconstructed images were cre ated and reviewed. Exam DLP is 505.7. CONTRAST: With; 60ML ISOVUE 370 intravenous. COMPARISON: None provided. FINDINGS: PULMONARY ARTERIES: There is no intraluminal filling defect suspicious for PE. AORTA: Aortic atherosclerosis without aneurysm. LUNGS: No focal consolidations or pulmonary mass. Multilobar linear atelectasis and/or scarring. Diff use mixed lobular groundglass and air trapping. PLEURAL SPACES: No pleural effusion. No pneumothorax. HEART AND MEDIASTINUM: Left side pacemaker with leads in the right atrium and right ventricle. LYMPH NODES: Prominent mediastinal and hilar lymph nodes without pathologic enlargement. BONES: No focal osseous abnormality or acute fracture. CHEST WALL AND UPPER ABDOMEN: Status post cholecystectomy. Small simple cyst within the liver. Spleni c artery calcifications. IMPRESSION: 1. No evidence of pulmonary embolism. 2. Diffuse areas of groundglass and air trapping within the lungs without focal consolidation most c ompatible with a small airways process. 3. Dual lead pacemaker. ELECTRONICALLY SIGNED BY: Arthur Wilson M.D. Jul 06, 2019 12:41:50 AM GENERATOR TECHNICIAN FINAL REPORT EMERGENT AFTER HOURS CTA OF THE CHEST WITH CONTRAST: COMPARISON: 09/16/2014. FINDINGS/IMPRESSION: I agree with the findings and impression given in the preliminary report per [facility] physici an. No evidence of pulmonary thromboembolism.
[2019-07-06] MEDS ORDERED: Apixaban 5 MG TAB PO SCH (09:00)
[2019-07-06] MEDS: HumaLOG 300 UNITS/3 ML VIAL SC PRN ×2 (11:44→17:42)
[2019-07-06 13:11] VITALS: BMI 28.6
[2019-07-06] MEDS: Cephalexin 250 MG CAP PO SCH ×2 (17:43→23:23)
[2019-07-06] MEDS: Donepezil HCl 10 MG TAB PO SCH (20:52)
[2019-07-06] MEDS: Acetaminophen 325 MG TAB PO PRN (20:52)
[2019-07-06] MEDS: Apixaban 5 MG TAB PO SCH (20:53)
[2019-07-06] MEDS: Insulin Glargine 20 UNITS in Pre-Filled Syringe 1 EACH SC SCH (20:53)
[2019-07-06] MEDS: Metoprolol Tartrate 50 MG TAB PO SCH (20:53)
[2019-07-06] MEDS ORDERED: INSULIN DEGLUDEC 20 UNIT SQ SCH (21:00)
[2019-07-06] MEDS ORDERED: cefTRIAXone\\ROCEPHIN 1 GM in Sodium Chloride 0.9% 100 ML IVPB SCH (23:30)
[2019-07-07 05:18] LABS: #Basophils 0.1 thou/uL (0.0-0.2); #Eosinphils 0.3 thou/uL (0.0-0.7); #Lymphocytes 1.3 thou/uL (1.20-3.40); #Monocytes 0.9 thou/uL (0.11-0.59); #Neutrophils 5.2 thou/uL (1.40-6.50); %Basophils 1.1 % (0.0-1.0); %Eosinophils 4.2 % (0.0-10.0); %Lymphocytes 17.1 % (21.0-51.0); %Neutrophils 66.6 % (42.0-75.0); Hemoglobin 13.5 g/dL (12.0-16.0); Mean Corpuscular HGB CONC 33.3 g/dL (32.0-36.0); Mean Corpuscular Volume 90.1 fL (78.0-98.0); Mean Platelet Volume 8.7 fL (7.4-10.4); Platelet Count 210 thou/uL (130-400); Red Blood Cell (RBC) Count 4.48 mill/uL (4.20-5.40); White Blood Cell (WBC) Count 7.8 thou/uL (4.8-10.8)
--- NOTE | 2019-07-07 05:30 | PDOC.FM ---
- Subjective Subjective: Patient states she is doing well this morning. Denies chest pain, sob, n/v/d. On telemetry monitoring was in afib in the 130s on the cardizem drip and then she converted to NSR. The cardizem drip was stopped and the patient's rate has stayed in the 80s since then. - Objective Vital Signs & Weight: Vital Signs (12 hours) Temp Pulse Resp BP Pulse Ox 07/07/19 05:01 97.4 F L 75 17 129/63 92 L 07/06/19 19:27 98.4 F 94 16 144/83 H 94 L Weight Weight 85.548 kg I&O: 07/05/19 07/06/19 07/07/19 06:59 06:59 06:59 Intake Total 790 Output Total 2350 Balance -1560 Result Diagrams: 07/07/19 04:59 07/07/19 04:59 Phys Exam - Physical Examination Constitutional: NAD HEENT: moist MMs, sclera anicteric Neck: supple, full ROM Respiratory: no wheezing, clear to auscultation bilateral Cardiovascular: no significant murmur Gastrointestinal: soft, non-tender 1+ pitting edema Neurological: non-focal, moves all 4 limbs Psychiatric: normal affect Skin: normal turgor Deviation from normal: abrasion on RLE Dx/Plan (1) Cellulitis Code(s): L03.90 - CELLULITIS, UNSPECIFIED Status: Acute (2) Diabetes mellitus Code(s): E11.9 - TYPE 2 DIABETES MELLITUS WITHOUT COMPLICATIONS Status: Chronic (3) Heart failure Code(s): I50.9 - HEART FAILURE, UNSPECIFIED Status: Chronic (4) Afib Code(s): I48.91 - UNSPECIFIED ATRIAL FIBRILLATION Status: Chronic Qualifiers: Atrial fibrillation type: paroxysmal Qualified Code(s): I48.0 - Paroxysmal atrial fibrillation (5) Dementia Code(s): F03.90 - UNSPECIFIED DEMENTIA WITHOUT BEHAVIORAL DISTURBANCE Status: Chronic Qualifiers: Dementia type: unspecified type Dementia behavioral disturbance: without behavioral disturbance Qualified Code(s): F03.90 - Unspecified dementia without behavioral disturbance - Plan Plan: Mrs. Farmer is an 79 yo female who presents for atrial fibrillation. # Atrial Fibrillation Hx of a-fib, possible that son forgot to give patient home digoxin. - digoxin will be started today, and will monitor digoxin levels to ensure in therapeutic range - restarted home apixaban - trop negative - converted to NSR overnight, stable rate in the 80s - will continue to monitor on telemetry # Cellulitis Rocephin given in the emergency department - patient transitioned over to PO keflex 07/06 # CHF Diastolic dysfunction in 2014 on echo. BNP elevated, likely secondary to atrial fibrillation. Lasix given in the emergency department. - respiratory status stable # DM - continue home medications - SSI # Mild Dementia A&O x 3 Fluids: none Diet: Low sodium VTE: Apixiban Code: Full Dispo: admitted for heart rate control and digoxin titration
[2019-07-07 05:37] LABS: Anion Gap 13 mmol/L (10-20); BUN (Urea Nitrogen) 13 mg/dL (9.8-20.1); Calc. Creatinine Clearance 62 mL/min (70-130); Calcium 8.5 mg/dL (7.8-10.44); Carbon Dioxide 23 mmol/L (23-31); Chloride 104 mmol/L (98-107); Estimated GFR-MDRD 56; Glucose 256 mg/dL (83-110); Potassium 3.6 mmol/L (3.5-5.1); Sodium 136 mmol/L (136-145)
[2019-07-07] MEDS: Cephalexin 250 MG CAP PO SCH ×3 (06:08→17:43)
[2019-07-07] MEDS: HumaLOG 300 UNITS/3 ML VIAL SC PRN ×3 (06:09→17:44)
[2019-07-07] MEDS: Insulin Glargine 20 UNITS in Pre-Filled Syringe 1 EACH SC SCH ×2 (08:50→19:46)
[2019-07-07] MEDS: Amiodarone 200 MG TAB PO SCH (08:51)
[2019-07-07] MEDS: Apixaban 5 MG TAB PO SCH ×2 (08:51→19:44)
[2019-07-07] MEDS: Atorvastatin Calcium 40 MG TAB PO SCH (08:52)
[2019-07-07] MEDS: Digoxin 0.125 MG TAB PO SCH (08:52)
[2019-07-07] MEDS: Fenofibrate Nanocrystallized 145 MG TAB PO SCH (08:52)
[2019-07-07] MEDS: Metoprolol Tartrate 50 MG TAB PO SCH ×2 (08:52→19:44)
[2019-07-07] MEDS: risperiDONE 0.25 MG TAB PO SCH (08:58)
[2019-07-07] MEDS: Liothyronine Sodium 5 MCG TAB PO SCH (08:58)
[2019-07-07] MEDS ORDERED: Prevnar 13-Val Conj/PF 0.5 ML SYRINGE IM ONE (09:00)
[2019-07-07] MEDS: Donepezil HCl 10 MG TAB PO SCH (19:44)
[2019-07-08] MEDS: Cephalexin 250 MG CAP PO SCH ×2 (00:01→06:23)
[2019-07-08 05:03] LABS: #Basophils 0.1 thou/uL (0.0-0.2); #Eosinphils 0.4 thou/uL (0.0-0.7); #Lymphocytes 1.5 thou/uL (1.20-3.40); #Monocytes 0.8 thou/uL (0.11-0.59); #Neutrophils 6.1 thou/uL (1.40-6.50); %Basophils 0.7 % (0.0-1.0); %Eosinophils 4.4 % (0.0-10.0); %Lymphocytes 16.7 % (21.0-51.0); %Monocytes 8.8 % (0.0-10.0); %Neutrophils 69.4 % (42.0-75.0); Hemoglobin 14.3 g/dL (12.0-16.0); Mean Corpuscular HGB CONC 32.5 g/dL (32.0-36.0); Mean Corpuscular Hemoglobin 29.3 pg (27.0-31.0); Mean Corpuscular Volume 90.2 fL (78.0-98.0); Mean Platelet Volume 8.6 fL (7.4-10.4); Platelet Count 233 thou/uL (130-400); Red Blood Cell (RBC) Count 4.87 mill/uL (4.20-5.40); White Blood Cell (WBC) Count 8.7 thou/uL (4.8-10.8)
--- NOTE | 2019-07-08 05:16 | PDOC.FM ---
- Subjective Subjective: Patient doing well this morning. Remained in NSR overnight on telemetry. Denies cp or sob at this time. Discussed plan of care with patient, including medication adjustments, patient agreeable. - Objective Vital Signs & Weight: Vital Signs (12 hours) Temp Pulse Resp BP Pulse Ox 07/08/19 04:27 98 F 64 14 136/61 94 L 07/07/19 23:50 97.7 F 83 14 158/75 H 93 L 07/07/19 19:30 97.5 F L 78 16 174/79 H 98 Weight Weight 84.187 kg I&O: 07/06/19 07/07/19 07/08/19 06:59 06:59 06:59 Intake Total 1590 720 Output Total 3780 Balance -2190 720 Result Diagrams: 07/08/19 04:54 07/08/19 04:54 Phys Exam - Physical Examination Constitutional: NAD HEENT: moist MMs, sclera anicteric Neck: supple, full ROM Respiratory: no wheezing, clear to auscultation bilateral Cardiovascular: RRR, no significant murmur Gastrointestinal: soft, non-tender Musculoskeletal: no edema, pulses present Neurological: non-focal, moves all 4 limbs Psychiatric: normal affect Skin: normal turgor Deviation from normal: small scab on RLL, non-erythematous Dx/Plan (1) Cellulitis Code(s): L03.90 - CELLULITIS, UNSPECIFIED Status: Acute (2) Diabetes mellitus Code(s): E11.9 - TYPE 2 DIABETES MELLITUS WITHOUT COMPLICATIONS Status: Chronic (3) Heart failure Code(s): I50.9 - HEART FAILURE, UNSPECIFIED Status: Chronic (4) Afib Code(s): I48.91 - UNSPECIFIED ATRIAL FIBRILLATION Status: Chronic Qualifiers: Atrial fibrillation type: paroxysmal Qualified Code(s): I48.0 - Paroxysmal atrial fibrillation (5) Dementia Code(s): F03.90 - UNSPECIFIED DEMENTIA WITHOUT BEHAVIORAL DISTURBANCE Status: Chronic Qualifiers: Dementia type: unspecified type Dementia behavioral disturbance: without behavioral disturbance Qualified Code(s): F03.90 - Unspecified dementia without behavioral disturbance - Plan Plan: Mrs. Farmer is an 79 yo female who is admitted for medication titration for atrial fibrillation. # Atrial Fibrillation Hx of a-fib, possible that son forgot to give patient home digoxin. - digoxin started 07/07/19, dig level < 0.15 this am. Will consider continuing current dose vs loading dose today - restarted home apixaban - trop negative - NSR overnight - will continue to monitor on telemetry # Cellulitis Rocephin given in the emergency department - patient transitioned over to PO keflex 07/06, leg non-erythematous today; keflex d/c # CHF Diastolic dysfunction in 2014 on echo. BNP elevated, likely secondary to atrial fibrillation. Lasix given in the emergency department. - respiratory status stable # DM - continue home medications - SSI # Mild Dementia A&O x 3 Fluids: none Diet: Low sodium VTE: Apixiban Code: Full Dispo: admitted for heart rate control and digoxin titration
[2019-07-08 05:29] LABS: Digoxin Less than 0.15 ng/mL (0.8-2.0)
[2019-07-08 05:30] LABS: Anion Gap 13 mmol/L (10-20); BUN (Urea Nitrogen) 13 mg/dL (9.8-20.1); Calc. Creatinine Clearance 63 mL/min (70-130); Calcium 8.8 mg/dL (7.8-10.44); Carbon Dioxide 24 mmol/L (23-31); Chloride 106 mmol/L (98-107); Estimated GFR-MDRD 58; Glucose 93 mg/dL (83-110); Potassium 3.7 mmol/L (3.5-5.1); Sodium 139 mmol/L (136-145)
[2019-07-08] MEDS: Digoxin 0.125 MG TAB PO SCH (08:48)
[2019-07-08] MEDS: Liothyronine Sodium 5 MCG TAB PO SCH (08:48)
[2019-07-08] MEDS: Fenofibrate Nanocrystallized 145 MG TAB PO SCH (08:48)
[2019-07-08] MEDS: Amiodarone 200 MG TAB PO SCH (08:48)
[2019-07-08] MEDS: Atorvastatin Calcium 40 MG TAB PO SCH (08:49)
[2019-07-08] MEDS: risperiDONE 0.25 MG TAB PO SCH (08:49)
[2019-07-08] MEDS: Insulin Glargine 20 UNITS in Pre-Filled Syringe 1 EACH SC SCH ×2 (08:49→20:59)
[2019-07-08] MEDS: Metoprolol Tartrate 50 MG TAB PO SCH ×2 (08:49→21:00)
[2019-07-08] MEDS: Apixaban 5 MG TAB PO SCH ×2 (08:49→21:00)
[2019-07-08] MEDS ORDERED: Potassium Chloride 20 MEQ TAB PO SCH (11:15)
--- NOTE | 2019-07-08 12:00 | PRG ---
DATE OF SERVICE: 07/08/2019 I have read the note of Dr. Crystal Beckham and agree with her assessment and plan. Ms. Farmer is a pleasant demented 79-year-old white female with a history of atrial fibrillation and heart failure. She presented to our ER very short of breath and it was discovered that she had missed several dosages of digoxin which she was taking for atrial fibrillation. Her heart rate in the ER was in the 150s demonstrating atrial fibrillation with RVR. She was given diltiazem and this controlled her rate and shortness of breath. Her digoxin was also restarted. By the next morning, she looked and felt much better. She did not demonstrate any further significant rapid rhythm disturbances overnight. Her troponins were less than 0.010. Her BNP on admission was 331. Her sodium is 135, potassium is 4.1, chloride 103, bicarb is 18, BUN 14, and creatinine 1.33. By the next morning, as stated above, she looks and felt much better, was very pleasant, talkative. We also held a discussion with the patient's son. All of her medications were restarted, and the patient subsequently was discharged in improved condition. Job ID: [id number]
[2019-07-08] MEDS ORDERED: Labetalol HCl 100 MG/20 ML VIAL SLOW IVP SCH (12:45)
[2019-07-08] MEDS: Acetaminophen 325 MG TAB PO PRN (12:52)
--- NOTE | 2019-07-08 17:11 | EKG ---
Test Reason : Blood Pressure : / mmHG Vent. Rate : 077 BPM Atrial Rate : 077 BPM P-R Int : 220 ms QRS Dur : 072 ms QT Int : 438 ms P-R-T Axes : 013 050 033 degrees QTc Int : 495 ms Electronic atrial pacemaker Nonspecific T wave abnormality Prolonged QT Abnormal ECG When compared with ECG of 05-JUL-2019 22:06, (Unconfirmed) Electronic atrial pacemaker has replaced Atrial fibrillation Nonspecific T wave abnormality no longer evident in Anterior leads QT has lengthened Confirmed by DR. Maxime RESTREPO ([id number]) on 07/08/2019 5:10:37 PM Referred By: RAYMOND posada Confirmed By:DR. Maxime RESTREPO
--- NOTE | 2019-07-08 19:23 | CON ---
DATE OF CONSULTATION: REASON FOR CONSULTATION: Atrial fibrillation. PRIMARY TORCH HEATER: Mark Bonner MD HISTORY OF PRESENT ILLNESS: Ms. Farmer is a pleasant 79-year-old woman with history of paroxysmal atrial fibrillation, who has been having increasing amounts of atrial fibrillation. The patient has a history of atrial fibrillation for many years. She was initially on Multaq and then, she failed that and went onto amiodarone. She has been doing relatively well, but was admitted to the hospital on this occasion with more shortness of breath and found to be in more atrial fibrillation. We have been consulted. MEDICATIONS: She was taking; 1. Amiodarone 200 mg a day. 2. TriCor. 3. Digoxin 0.125 mg a day. 4. Apixaban 2.5 mg twice a day. 5. Metoprolol tartrate 50 mg twice a day. PAST MEDICAL HISTORY: She has a history of mild nonobstructive coronary artery disease. She has a history of pacemaker insertion, dual-chamber. ALLERGIES: NONE KNOWN. SOCIAL HISTORY: No alcohol or tobacco. PHYSICAL EXAMINATION: GENERAL: This is a pleasant elderly woman, in no distress. VITAL SIGNS: Blood pressure 129/83, and pulse 100. Frequently, she is in atrial fibrillation. LUNGS: Clear. CARDIAC: Irregular. ABDOMEN: Soft and nontender. EXTREMITIES: Warm and dry. No clubbing. No cyanosis or edema. PERTINENT LABORATORY DATA: Hemoglobin 14.3. Digoxin still less than 0.15. ASSESSMENT: Paroxysmal atrial fibrillation with increasing fibrillation noted. PLAN: 1. Increase the amiodarone to 200 mg twice a day. 2. Consideration for atrial fibrillation ablation could be given. 3. Continue apixaban. 4. Dr. Bonner to recheck tomorrow. Job ID: [id number]
--- NOTE | 2019-07-08 20:12 | ULT ---
EXAM: Carotid Doppler PROVIDED CLINICAL HISTORY: Dizziness COMPARISON: None FINDINGS: Grayscale and color Doppler sonography with spectral analysis was performed of the extracranial carot id system bilaterally. There is no evidence for a hemodynamically significant internal carotid artery stenosis by peak systolic velocity or ratio criteria. Antegrade flow is seen in the vertebral arteries. IMPRESSION: No sonographic evidence for a hemodynamically significant internal carotid artery stenosis.
[2019-07-08] MEDS ORDERED: Amiodarone 200 MG TAB PO SCH (21:00)
[2019-07-08] MEDS: Donepezil HCl 10 MG TAB PO SCH (21:00)
[2019-07-08] MEDS: Ondansetron PF 4 MG/2 ML Vial IVP PRN (22:23)
[2019-07-08] MEDS: Meclizine HCl 12.5 MG TAB PO PRN (22:23)
[2019-07-09 05:10] LABS: #Eosinphils 0.1 thou/uL (0.0-0.7); #Lymphocytes 1.1 thou/uL (1.20-3.40); #Monocytes 0.6 thou/uL (0.11-0.59); #Neutrophils 8.1 thou/uL (1.40-6.50); %Basophils 0.1 % (0.0-1.0); %Eosinophils 0.6 % (0.0-10.0); %Monocytes 5.8 % (0.0-10.0); %Neutrophils 82.6 % (42.0-75.0); Hemoglobin 14.1 g/dL (12.0-16.0); Mean Corpuscular HGB CONC 31.9 g/dL (32.0-36.0); Mean Corpuscular Hemoglobin 29.2 pg (27.0-31.0); Mean Corpuscular Volume 91.5 fL (78.0-98.0); Mean Platelet Volume 8.5 fL (7.4-10.4); Platelet Count 241 thou/uL (130-400); RBC Distribution Width 14.1 % (11.5-14.5); Red Blood Cell (RBC) Count 4.82 mill/uL (4.20-5.40); White Blood Cell (WBC) Count 9.8 thou/uL (4.8-10.8)
--- NOTE | 2019-07-09 05:14 | PDOC.FM ---
- Subjective Subjective: It was planned for patient to be discharged yesterday 07/08, but she became dizzy and her blood pressure increased to the 180s/70s systolic. A dose of labetalol was given and the patient converted into a-fib from NSR. Stat EKG showed atrial pacing, and trops were negative. An echo was ordered, pending, and cardiology, Dr. Lugo, was consulted. When talking with patient today, she denied any dizziness. Per report she had another bout of emesis overnight. Discussed with patient that we are working with cardiology to get her on a good regimen to go home on. Patient agreeable with plan of care at this time. - Objective Vital Signs & Weight: Vital Signs (12 hours) Temp Pulse Resp BP BP Pulse Ox 07/09/19 04:44 97.7 F 76 14 129/69 92 L 07/08/19 22:06 97.8 F 90 18 142/82 H 94 L Weight Weight 80.059 kg I&O: 07/07/19 07/08/19 07/09/19 06:59 06:59 06:59 Intake Total 1590 720 Output Total 3780 Balance -2190 720 Result Diagrams: 07/09/19 04:45 07/09/19 04:45 Phys Exam - Physical Examination Constitutional: NAD HEENT: moist MMs, sclera anicteric Neck: supple, full ROM Respiratory: no wheezing, clear to auscultation bilateral Cardiovascular: no significant murmur atrial fibrillation Gastrointestinal: soft, non-tender Musculoskeletal: pulses present 1+ BLE Neurological: non-focal, moves all 4 limbs Psychiatric: normal affect Skin: normal turgor Deviation from normal: scab LE Dx/Plan (1) Cellulitis Code(s): L03.90 - CELLULITIS, UNSPECIFIED Status: Acute (2) Diabetes mellitus Code(s): E11.9 - TYPE 2 DIABETES MELLITUS WITHOUT COMPLICATIONS Status: Chronic (3) Heart failure Code(s): I50.9 - HEART FAILURE, UNSPECIFIED Status: Chronic (4) Afib Code(s): I48.91 - UNSPECIFIED ATRIAL FIBRILLATION Status: Chronic Qualifiers: Atrial fibrillation type: paroxysmal Qualified Code(s): I48.0 - Paroxysmal atrial fibrillation (5) Dementia Code(s): F03.90 - UNSPECIFIED DEMENTIA WITHOUT BEHAVIORAL DISTURBANCE Status: Chronic Qualifiers: Dementia type: unspecified type Dementia behavioral disturbance: without behavioral disturbance Qualified Code(s): F03.90 - Unspecified dementia without behavioral disturbance - Plan Plan: Mrs. Farmer is an 79 yo female who is admitted for medication titration for atrial fibrillation. # Paroxysmal Atrial Fibrillation Hx of a-fib, possible that son forgot to give patient home digoxin. - digoxin started 07/07/19, dig level 0.22 this am. Continue current dosing - Cardiology, Dr. Lugo, consulted, appreciate recs -increase amiodarone to 200mg BID -consider afib ablation -continue apixaban - restarted home apixaban - trop negative, repeat stat trop 07/08 negative - will continue to monitor on telemetry with new regimen # Cellulitis Rocephin given in the emergency department - patient transitioned over to PO keflex 07/06, leg non-erythematous 07/08; keflex d/c # CHF Diastolic dysfunction in 2014 on echo. BNP elevated, likely secondary to atrial fibrillation. Lasix given in the emergency department. - respiratory status stable - repeat echo: -overall left ventricular function moderately depressed -EF 35-40% -moderately enlarged right ventricle cavity -pacer wire visualized in right ventricle -left atrium is mildly dilated -severe mitral regurgitation is present -mild aortic stenosis is present -severe tricuspid regurgitation -mild pulmonic regurgitation present # DM - continue home medications - SSI # Mild Dementia A&O x 3 Fluids: none Diet: Low sodium VTE: Apixiban Code: Full Dispo: admitted for heart rate control and digoxin titration, increase amiodarone today; cardiology consulted, appreciate recs
[2019-07-09 05:27] LABS: Anion Gap 11 mmol/L (10-20); BUN (Urea Nitrogen) 13 mg/dL (9.8-20.1); Calc. Creatinine Clearance 63 mL/min (70-130); Calcium 8.6 mg/dL (7.8-10.44); Carbon Dioxide 26 mmol/L (23-31); Chloride 107 mmol/L (98-107); Digoxin 0.22 ng/mL (0.8-2.0); Estimated GFR-MDRD 62; Glucose 120 mg/dL (83-110); Potassium 4.1 mmol/L (3.5-5.1); Sodium 140 mmol/L (136-145)
[2019-07-09] MEDS: Ondansetron PF 4 MG/2 ML Vial IVP PRN ×3 (06:45→21:34)
[2019-07-09] MEDS ORDERED: Digoxin 0.5 MG/2 ML AMP SLOW IVP SCH (08:45)
[2019-07-09] MEDS: Atorvastatin Calcium 40 MG TAB PO SCH (09:03)
[2019-07-09] MEDS: Amiodarone 200 MG TAB PO SCH ×2 (09:04→21:34)
[2019-07-09] MEDS: Liothyronine Sodium 5 MCG TAB PO SCH (09:04)
[2019-07-09] MEDS: Apixaban 5 MG TAB PO SCH ×2 (09:04→21:34)
[2019-07-09] MEDS: risperiDONE 0.25 MG TAB PO SCH (09:04)
[2019-07-09] MEDS: Metoprolol Tartrate 50 MG TAB PO SCH ×2 (09:04→21:34)
[2019-07-09] MEDS: Fenofibrate Nanocrystallized 145 MG TAB PO SCH (09:05)
[2019-07-09] MEDS: Meclizine HCl 12.5 MG TAB PO PRN ×2 (09:05→21:34)
[2019-07-09] MEDS: Furosemide 20 MG TAB PO SCH (09:11)
--- NOTE | 2019-07-09 10:50 | PRG ---
DATE OF SERVICE: 07/09/2019 Ms. Farmer had an episode of dizziness yesterday. Cardiology was consulted and her echo was repeated. She does have an EF of around 35% to 40%. She is in atrial fibrillation with controlled ventricular response. She has been seen in consultation by the Cardiology Service and they have increased the patient's amiodarone. If this is ineffective, may need to consider ablation. Job ID: [id number]
[2019-07-09] MEDS: Insulin Glargine 20 UNITS in Pre-Filled Syringe 1 EACH SC SCH ×2 (12:10→21:34)
[2019-07-09] MEDS: Digoxin 0.125 MG TAB PO SCH (12:10)
[2019-07-09] MEDS: Donepezil HCl 10 MG TAB PO SCH (21:34)
[2019-07-09 22:56] LABS: Hemoglobin 14.2 g/dL (12.0-16.0); Platelet Count 263 thou/uL (130-400)
--- NOTE | 2019-07-10 05:18 | PDOC.FM ---
- Subjective Subjective: Patient doing well this morning. Reports that her dizziness and headache have improved, denies any bouts of emesis overnight. Per telemetry she has been afib and v-paced overnight in the 70s-80s. Discussed that her medications have been adjusted and we are continuing to watch her heart on telemetry. Patient agreeable with plan of care. - Objective Vital Signs & Weight: Vital Signs (12 hours) Temp Pulse Resp BP Pulse Ox 07/09/19 20:00 92 L 07/09/19 19:37 98.1 F 88 16 149/70 H 92 L Weight Weight 80.059 kg I&O: 07/08/19 07/09/19 07/10/19 06:59 06:59 06:59 Intake Total 720 Balance 720 Result Diagrams: 07/10/19 04:56 07/10/19 04:56 EKG Reviewed by me: Yes Phys Exam - Physical Examination Constitutional: NAD HEENT: moist MMs, sclera anicteric Neck: supple, full ROM Respiratory: no wheezing, clear to auscultation bilateral Cardiovascular: no significant murmur afib Gastrointestinal: soft, non-tender Musculoskeletal: pulses present 1+ BLE Neurological: non-focal, moves all 4 limbs Psychiatric: normal affect Skin: no rash, normal turgor Dx/Plan (1) Cellulitis Code(s): L03.90 - CELLULITIS, UNSPECIFIED Status: Acute (2) Diabetes mellitus Code(s): E11.9 - TYPE 2 DIABETES MELLITUS WITHOUT COMPLICATIONS Status: Chronic (3) Heart failure Code(s): I50.9 - HEART FAILURE, UNSPECIFIED Status: Chronic (4) Afib Code(s): I48.91 - UNSPECIFIED ATRIAL FIBRILLATION Status: Chronic Qualifiers: Atrial fibrillation type: paroxysmal Qualified Code(s): I48.0 - Paroxysmal atrial fibrillation (5) Dementia Code(s): F03.90 - UNSPECIFIED DEMENTIA WITHOUT BEHAVIORAL DISTURBANCE Status: Chronic Qualifiers: Dementia type: unspecified type Dementia behavioral disturbance: without behavioral disturbance Qualified Code(s): F03.90 - Unspecified dementia without behavioral disturbance - Plan Plan: Mrs. Farmer is an 79 yo female who is admitted for medication titration for atrial fibrillation. # Paroxysmal Atrial Fibrillation Hx of a-fib, possible that son forgot to give patient home digoxin. - digoxin started 07/07/19, dig level 0.98 this am. Continue current dosing - Cardiology, Dr. Lugo, consulted, appreciate recs -increased amiodarone to 200mg BID -consider afib ablation -continue apixaban -Cardiology, Dr. Bonner, continued consult, appreciate recs -increased amiodarone to 400mg BID -now dose of 0.5mg dig followed by daily 0.125mg dig -increased apixaban to 5mg BID - will continue to monitor on telemetry with new regimen and therapeutic dig level # Cellulitis, resolved Rocephin given in the emergency department - patient transitioned over to PO keflex 07/06, leg non-erythematous 07/08; keflex d/c # CHF Diastolic dysfunction in 2014 on echo. BNP elevated, likely secondary to atrial fibrillation. Lasix given in the emergency department. - respiratory status stable - repeat echo: -overall left ventricular function moderately depressed -EF 35-40% -moderately enlarged right ventricle cavity -pacer wire visualized in right ventricle -left atrium is mildly dilated -severe mitral regurgitation is present -mild aortic stenosis is present -severe tricuspid regurgitation -mild pulmonic regurgitation present # DM - continue home medications - SSI # Mild Dementia A&O x 3 Fluids: none Diet: Low sodium VTE: Apixiban Code: Full Dispo: admitted for heart rate control and digoxin titration, increase amiodarone today; cardiology consulted, appreciate recs
[2019-07-10 05:34] LABS: #Basophils 0.1 thou/uL (0.0-0.2); #Eosinphils 0.2 thou/uL (0.0-0.7); #Lymphocytes 1.9 thou/uL (1.20-3.40); #Neutrophils 7.5 thou/uL (1.40-6.50); %Basophils 0.7 % (0.0-1.0); %Eosinophils 2.3 % (0.0-10.0); %Lymphocytes 17.9 % (21.0-51.0); %Monocytes 9.7 % (0.0-10.0); %Neutrophils 69.5 % (42.0-75.0); Hemoglobin 14.4 g/dL (12.0-16.0); Mean Corpuscular HGB CONC 31.5 g/dL (32.0-36.0); Mean Corpuscular Volume 92.1 fL (78.0-98.0); Mean Platelet Volume 8.5 fL (7.4-10.4); Platelet Count 281 thou/uL (130-400); RBC Distribution Width 14.1 % (11.5-14.5); Red Blood Cell (RBC) Count 4.97 mill/uL (4.20-5.40); White Blood Cell (WBC) Count 10.7 thou/uL (4.8-10.8)
[2019-07-10 05:57] LABS: Anion Gap 11 mmol/L (10-20); BUN (Urea Nitrogen) 12 mg/dL (9.8-20.1); Calc. Creatinine Clearance 56 mL/min (70-130); Calcium 8.5 mg/dL (7.8-10.44); Carbon Dioxide 29 mmol/L (23-31); Cardiac Risk 4.3 (Less than 4.5); Chloride 104 mmol/L (98-107); Cholesterol 151 mg/dl (< 200 Desired); Estimated GFR-MDRD 53; Glucose 97 mg/dL (83-110); HDL Cholesterol 35 mg/dL (>60 Neg Risk); LDL Cholesterol, Calculated 94 mg/dL; Potassium 3.5 mmol/L (3.5-5.1); Sodium 140 mmol/L (136-145); Triglycerides 111 mg/dL (Less than 150)
[2019-07-10 08:42] LABS: Digoxin 0.98 ng/mL (0.8-2.0)
[2019-07-10] MEDS: Apixaban 5 MG TAB PO SCH ×2 (09:22→20:03)
[2019-07-10] MEDS: Digoxin 0.125 MG TAB PO SCH (09:22)
[2019-07-10] MEDS: Amiodarone 200 MG TAB PO SCH ×2 (09:22→20:02)
[2019-07-10] MEDS: Furosemide 20 MG TAB PO SCH (09:22)
[2019-07-10] MEDS: Atorvastatin Calcium 40 MG TAB PO SCH (09:22)
[2019-07-10] MEDS: Meclizine HCl 12.5 MG TAB PO PRN ×2 (09:22→20:03)
[2019-07-10] MEDS: Liothyronine Sodium 5 MCG TAB PO SCH (09:23)
[2019-07-10] MEDS: Fenofibrate Nanocrystallized 145 MG TAB PO SCH (09:23)
[2019-07-10] MEDS: risperiDONE 0.25 MG TAB PO SCH (09:23)
[2019-07-10] MEDS: Metoprolol Tartrate 50 MG TAB PO SCH (09:23)
[2019-07-10] MEDS: Insulin Glargine 20 UNITS in Pre-Filled Syringe 1 EACH SC SCH ×2 (09:24→20:05)
[2019-07-10] MEDS ORDERED: Potassium Chloride 20 MEQ TAB PO SCH (10:15)
--- NOTE | 2019-07-10 11:22 | PDOC.CPN ---
- Subjective Date: 07/10/19 Time: 11:31 Interval history: The pt seen and examined. No overnight events. No cardiac complaints. - Objective Allergies/Adverse Reactions: Allergies Allergy/AdvReac Type Severity Reaction Status Date / Time No Known Allergies Allergy Verified 07/06/19 10:41 Visit Medications: Current Medications Acetaminophen (Tylenol) 650 mg PO Q6H PRN PRN Reason: Pain Last Admin: 07/08/19 12:52 Dose: 650 mg Amiodarone HCl (Cordarone) 400 mg PO BID [facility] Last Admin: 07/10/19 09:22 Dose: 400 mg Apixaban (Eliquis) 5 mg PO BID [facility] Last Admin: 07/10/19 09:22 Dose: 5 mg Atorvastatin Calcium (Lipitor) 40 mg PO DAILY [facility] Last Admin: 07/10/19 09:22 Dose: 40 mg Dextrose/Water (Dextrose 50%) 25 gm SLOW IVP PRN PRN PRN Reason: Hypoglycemia Digoxin (Lanoxin) 0.125 mg PO DAILY [facility] Last Admin: 07/10/19 09:22 Dose: 0.125 mg Donepezil HCl (Aricept) 10 mg PO [facility] Last Admin: 07/09/19 21:34 Dose: 10 mg Fenofibrate (Tricor) 145 mg PO DAILY [facility] Last Admin: 07/10/19 09:23 Dose: 145 mg Furosemide (Lasix) 20 mg PO DAILY [facility] Last Admin: 07/10/19 09:22 Dose: 20 mg Glucagon (Glucagon) 1 mg IM PRN PRN PRN Reason: Hypoglycemia Dextrose/Water (D5w) 1,000 mls @ 0 mls/hr IV .Q0M PRN PRN Reason: Hypoglycemia Insulin Glargine 20 units/ (Miscellaneous Medication) 0.2 mls @ 0 mls/hr SC HS [facility] Last Admin: 07/09/19 21:34 Dose: 0.2 mls Insulin Glargine 20 units/ (Miscellaneous Medication) 0.2 mls @ 0 mls/hr SC [facility] [place] Last Admin: 07/10/19 09:24 Dose: 0.2 mls Insulin Human Lispro (Humalog) 0 units SC .MILD SLIDING SCALE PRN PRN Reason: Mild Correctional Scale Last Admin: 07/07/19 17:44 Dose: 3 unit Liothyronine Sodium (Cytomel) 5 mcg PO DAILY [facility] Last Admin: 07/10/19 09:23 Dose: 5 mcg Meclizine HCl (Antivert) 12.5 mg PO BIDPRN PRN PRN Reason: Dizziness Last Admin: 07/10/19 09:22 Dose: 12.5 mg Ondansetron HCl (Zofran) 4 mg IVP Q6H PRN PRN Reason: Nausea/Vomiting Last Admin: 07/09/19 21:34 Dose: 4 mg Potassium Chloride (K-Dur) 40 meq PO NOW AKBAR Stop: 07/10/19 12:00 Last Admin: 07/10/19 10:30 Dose: 40 meq Risperidone (Risperidone) 0.5 mg PO DAILY [facility] Last Admin: 07/10/19 09:23 Dose: 0.5 mg Sertraline HCl (Zoloft) 50 mg PO DAILY [facility] Last Admin: 07/10/19 09:21 Dose: 50 mg Sodium Chloride (Flush - Normal Saline) 10 ml IVF Q12HR [facility] Last Admin: 07/10/19 09:23 Dose: 10 ml Sodium Chloride (Flush - Normal Saline) 10 ml IVF PRN PRN PRN Reason: Saline Flush Vital Signs & Weight: Vital Signs Temp Pulse Resp BP Pulse Ox 07/10/19 09:22 69 07/10/19 07:38 97.7 F 69 16 138/63 94 L 07/10/19 05:00 64 18 134/60 Weight 176 lb 1.6 oz - Physical Exam HEENT: mucus membranes moist Neck: supple neck Cardiac: irregularly regular Lungs: decreased breath sounds - Labs Result Diagrams: 07/10/19 04:56 07/10/19 04:56 Troponin/CKMB Troponin I Less than 0.010 ng/mL (< 0.028) 07/08/19 12:35 - Telemetry Sinus rhythms and dysrhythmias: other (Afib with V paced) - Assessment/Plan Assessment/Plan: 1. Parox Afib - well controlled HR with Amiodarone 400mg BID (started on 2018), Digoxin PO, and Eliquis; Metoprolol was changed to Coreg for CHF management 2. Acute on Chronic Systolic HF with EF 35-40% (from 50-55%) - stable with RA; on Lasix 20mg qd and Coreg; not on AYANNA/ARB due to hx of CKD 3. Mild CAD with 40 % stenosis in LAD in 1999 - Asymptomatic; on bblocker and Statin; not on ASA since the pt is on Eliquis 4. HTN - stable 5. HLD 6. DM type 2 7. Dementia 8. Ex-smoker 9. hx of PM placement 10. non-compliance of med - MAR reviewed * Echo on 07/09/2019 with EF 35-40%, mod ERV, mildly dilated LA, severe MR and TR, mild [place] and . * Dr Bonner's pt Pt. seen and eval. by me. I agree with the A/P by the [employer] except she went from afib. to NSR and is now in atrial flutter. I will keep her NPO for possible cardioversion in AM. lolly
--- NOTE | 2019-07-10 11:30 | PRG ---
DATE OF SERVICE: 07/10/2019 Ms. Farmer is resting quietly in bed, in no distress. She is in atrial fibrillation with controlled ventricular response. Cardiology has increased her amiodarone to 400 mg twice a day. They gave her a loading dose of dig and she is now on a daily p.o. dose of 0.125 mg daily. Her echo did show an EF of between 35% and 40% with severe MR and severe tricuspid regurgitation. She is likely ready for discharge later this afternoon if there are no further recommendations from Cardiology. Job ID: [id number]
[2019-07-10] MEDS: Carvedilol 6.25 MG TAB PO SCH (16:42)
[2019-07-10] MEDS: Donepezil HCl 10 MG TAB PO SCH (20:03)
--- NOTE | 2019-07-11 05:27 | PDOC.FM ---
- Subjective Subjective: Patient doing well this morning. Denies dizziness or headache. Discussed plans for possible cardioversion today with both patient and son, both agreeable with plan of care. - Objective Vital Signs & Weight: Vital Signs (12 hours) Temp Pulse Resp BP BP Pulse Ox 07/11/19 04:50 97.8 F 65 20 138/64 93 L 07/10/19 23:35 97.6 F 79 18 146/70 H 91 L 07/10/19 19:44 97.2 F L 77 16 160/69 H 91 L Weight Weight 80.739 kg I&O: 07/09/19 07/10/19 07/11/19 06:59 06:59 06:59 Intake Total 822 Output Total 1625 Balance -803 Result Diagrams: 07/10/19 04:56 07/10/19 04:56 Phys Exam - Physical Examination Constitutional: NAD HEENT: moist MMs, sclera anicteric Neck: supple, full ROM Respiratory: no wheezing, clear to auscultation bilateral atrial flutter Gastrointestinal: soft, non-tender Musculoskeletal: no edema, pulses present Neurological: non-focal, moves all 4 limbs Psychiatric: normal affect Skin: no rash, normal turgor Dx/Plan (1) Cellulitis Code(s): L03.90 - CELLULITIS, UNSPECIFIED Status: Acute (2) Diabetes mellitus Code(s): E11.9 - TYPE 2 DIABETES MELLITUS WITHOUT COMPLICATIONS Status: Chronic (3) Heart failure Code(s): I50.9 - HEART FAILURE, UNSPECIFIED Status: Chronic (4) Afib Code(s): I48.91 - UNSPECIFIED ATRIAL FIBRILLATION Status: Chronic Qualifiers: Atrial fibrillation type: paroxysmal Qualified Code(s): I48.0 - Paroxysmal atrial fibrillation (5) Dementia Code(s): F03.90 - UNSPECIFIED DEMENTIA WITHOUT BEHAVIORAL DISTURBANCE Status: Chronic Qualifiers: Dementia type: unspecified type Dementia behavioral disturbance: without behavioral disturbance Qualified Code(s): F03.90 - Unspecified dementia without behavioral disturbance - Plan Plan: Mrs. Farmer is an 79 yo female who is admitted for medication titration for atrial fibrillation. # Paroxysmal Atrial Fibrillation Hx of a-fib, possible that son forgot to give patient home digoxin. - digoxin started 07/07/19, dig level 0.98 07/10. Continue current dosing - Cardiology, Dr. Lugo, consulted, appreciate recs -increased amiodarone to 200mg BID -consider afib ablation -continue apixaban -Cardiology, Dr. Bonner, continued consult, appreciate recs -increased amiodarone to 400mg BID -now dose of 0.5mg dig followed by daily 0.125mg dig -increased apixaban to 5mg BID -Cardiology, Dr. Francisco, continued consult, appreciate recs -adjusted medications from metoprolol to coreg -patient went into aflutter 07/10, plans for possible CLAYTON and cardioversion today - will continue to monitor on telemetry with new regimen and therapeutic dig level # Cellulitis, resolved Rocephin given in the emergency department - patient transitioned over to PO keflex 07/06, leg non-erythematous 07/08; keflex d/c # CHF Diastolic dysfunction in 2014 on echo. BNP elevated, likely secondary to atrial fibrillation. Lasix given in the emergency department. - respiratory status stable - repeat echo: -overall left ventricular function moderately depressed -EF 35-40% -moderately enlarged right ventricle cavity -pacer wire visualized in right ventricle -left atrium is mildly dilated -severe mitral regurgitation is present -mild aortic stenosis is present -severe tricuspid regurgitation -mild pulmonic regurgitation present # DM - continue home medications - SSI # Mild Dementia A&O x 3 Fluids: none Diet: Low sodium VTE: Apixiban Code: Full Dispo: admitted for heart rate control and digoxin titration, possible cardioversion today; cardiology consulted, appreciate recs
[2019-07-11] MEDS: Apixaban 5 MG TAB PO SCH ×2 (09:24→20:13)
[2019-07-11] MEDS: Furosemide 20 MG TAB PO SCH (09:24)
[2019-07-11] MEDS: Carvedilol 6.25 MG TAB PO SCH ×2 (09:24→16:46)
[2019-07-11] MEDS: Digoxin 0.125 MG TAB PO SCH (09:24)
[2019-07-11] MEDS: Amiodarone 200 MG TAB PO SCH ×2 (09:24→20:13)
[2019-07-11] MEDS: Fenofibrate Nanocrystallized 145 MG TAB PO SCH (09:24)
[2019-07-11] MEDS: Insulin Glargine 20 UNITS in Pre-Filled Syringe 1 EACH SC SCH ×2 (09:25→20:17)
[2019-07-11] MEDS: Liothyronine Sodium 5 MCG TAB PO SCH (09:25)
[2019-07-11] MEDS: risperiDONE 0.25 MG TAB PO SCH (09:25)
[2019-07-11] MEDS ORDERED: PROPOFOL 40 ML ONE (09:37)
--- NOTE | 2019-07-11 11:08 | PRG ---
DATE OF SERVICE: 07/11/2019 Late yesterday, Ms. Farmer was ready for discharge. She, however, developed atrial flutter and was subsequently seen again by Cardiology. She is now down for consideration of cardioversion. Job ID: [id number]
--- NOTE | 2019-07-11 16:53 | EKG ---
Test Reason : POST CARDIONVERSION Blood Pressure : / mmHG Vent. Rate : 060 BPM Atrial Rate : 060 BPM P-R Int : 210 ms QRS Dur : 070 ms QT Int : 406 ms P-R-T Axes : 045 047 261 degrees QTc Int : 406 ms Electronic atrial pacemaker Abnormal ECG When compared with ECG of 08-JUL-2019 12:27, T wave inversion now evident in Anterior leads QT has shortened Confirmed by DR. Maxime RESTREPO ([id number]) on 07/11/2019 4:53:20 PM Referred By: NERY Confirmed By:DR. Maxime RESTREPO
[2019-07-11] MEDS: Acetaminophen 325 MG TAB PO PRN (20:11)
[2019-07-11] MEDS: Donepezil HCl 10 MG TAB PO SCH (20:13)
--- NOTE | 2019-07-11 20:22 | ECHO ---
DATE OF PROCEDURE: 07/11/19 SURGEON: Paulina Cooper M.D. PROCEDURE: CLAYTON INDICATION FOR PROCEDURE: This is an 79-year-old female with history of atrial flutter, was advised to undergo electrical card ioversion for the atrial flutter. She has been on Eliquis with a somewhat decreased dose. She was adv ised to undergo a transesophageal echocardiogram prior to undergoing the procedure. The patient was taken to the recovery area where she underwent short acting propofol. The transesopha geal probe was easily passed down the distal esophagus. Impressions: Left atrial dilatation of 5 to 5.3 cm in diameter. Normal left ventricular systolic function. Ejection fraction estimated at 50-55%. Pacemaker leads noted in the right atrium and right ventricle without evidence of vegetations o r thrombus. Smoke in the left atrium and left atrial appendage. No evidence of thrombus formation in the left atrial appendage. Severe tricuspid valve regurgitation. Severe mitral valve regurgitation. Normally functioning aortic valve without any evidence of stenosis or regurgitation.
--- NOTE | 2019-07-11 20:27 | OP ---
DATE OF PROCEDURE: 07/11/19 SURGEON: Mark Bonner M.D. PROCEDURE: Electrical cardioversion Patient was sedated after transesophageal echo was performed revealing no thrombus in the left atrial appendage. With 200 joules she returned to A-V pacing.
[2019-07-11] MEDS ORDERED: Atorvastatin Calcium 40 MG TAB PO SCH (21:00)
[2019-07-11] MEDS: Meclizine HCl 12.5 MG TAB PO PRN (21:13)
--- NOTE | 2019-07-12 05:24 | PDOC.FM ---
- Subjective Subjective: Patient doing well this morning. Denies any chest pain, sob, abd pain, dizziness , or headache. Tolerated the CLAYTON and cardioversion well yesterday. - Objective Vital Signs & Weight: Vital Signs (12 hours) Temp Pulse Resp BP BP Pulse Ox 07/12/19 04:08 98.8 F 64 16 122/58 L 92 L 07/11/19 23:15 98.2 F 61 14 133/60 93 L 07/11/19 20:11 97 07/11/19 19:25 97.3 F L 62 13 175/79 H 97 Weight Weight 82.781 kg I&O: 07/10/19 07/11/19 07/12/19 06:59 06:59 06:59 Intake Total 822 1000 Output Total 1625 200 Balance -803 800 Result Diagrams: 07/10/19 04:56 07/10/19 04:56 EKG Reviewed by me: Yes (sinus, a-pacing, 60s-70s) Phys Exam - Physical Examination Constitutional: NAD HEENT: moist MMs, sclera anicteric Neck: supple, full ROM Respiratory: no wheezing, clear to auscultation bilateral Cardiovascular: RRR, no significant murmur Gastrointestinal: soft, non-tender 1+ edema BLE Neurological: non-focal, moves all 4 limbs Psychiatric: normal affect Skin: normal turgor Deviation from normal: scab healing nicely on lower extremity Dx/Plan (1) Cellulitis Code(s): L03.90 - CELLULITIS, UNSPECIFIED Status: Acute (2) Diabetes mellitus Code(s): E11.9 - TYPE 2 DIABETES MELLITUS WITHOUT COMPLICATIONS Status: Chronic (3) Heart failure Code(s): I50.9 - HEART FAILURE, UNSPECIFIED Status: Chronic (4) Afib Code(s): I48.91 - UNSPECIFIED ATRIAL FIBRILLATION Status: Chronic Qualifiers: Atrial fibrillation type: paroxysmal Qualified Code(s): I48.0 - Paroxysmal atrial fibrillation (5) Dementia Code(s): F03.90 - UNSPECIFIED DEMENTIA WITHOUT BEHAVIORAL DISTURBANCE Status: Chronic Qualifiers: Dementia type: unspecified type Dementia behavioral disturbance: without behavioral disturbance Qualified Code(s): F03.90 - Unspecified dementia without behavioral disturbance - Plan Plan: Mrs. Farmer is an 79 yo female who is admitted for medication titration for atrial fibrillation. # Paroxysmal Atrial Fibrillation Hx of a-fib, possible that son forgot to give patient home digoxin. - digoxin started 07/07/19, dig level 0.98 07/10. Continue current dosing - Cardiology, Dr. Lugo, consulted, appreciate recs -increased amiodarone to 200mg BID -consider afib ablation -continue apixaban -Cardiology, Dr. Bonner, continued consult, appreciate recs -increased amiodarone to 400mg BID -now dose of 0.5mg dig followed by daily 0.125mg dig -increased apixaban to 5mg BID -Cardiology, Dr. Francisco, continued consult, appreciate recs -adjusted medications from metoprolol to coreg -patient went into aflutter 07/10 -Cardiology, Dr. Bonner, performed CLAYTON with cardioversion 07/11 for a-flutter. Patient tolerated the procedure well. -will f/u with cardiology for recs for d/c; per CM discussion patient would prefer to go home with # Cellulitis, resolved Rocephin given in the emergency department - patient transitioned over to PO keflex 07/06, leg non-erythematous 07/08; keflex d/c # CHF Diastolic dysfunction in 2014 on echo. BNP elevated, likely secondary to atrial fibrillation. Lasix given in the emergency department. - respiratory status stable - repeat echo: -overall left ventricular function moderately depressed -EF 35-40% -moderately enlarged right ventricle cavity -pacer wire visualized in right ventricle -left atrium is mildly dilated -severe mitral regurgitation is present -mild aortic stenosis is present -severe tricuspid regurgitation -mild pulmonic regurgitation present # DM - continue home medications - SSI # Mild Dementia A&O x 3 Fluids: none Diet: Low sodium VTE: Apixiban Code: Full Dispo: admitted for heart rate control and digoxin titration; cardiology consulted, appreciate recs; possible d/c later today if cleared by cardiology
[2019-07-12 08:35] VITALS: TEMP 98.1
[2019-07-12] MEDS: Liothyronine Sodium 5 MCG TAB PO SCH (08:52)
[2019-07-12] MEDS: Carvedilol 6.25 MG TAB PO SCH (08:53)
[2019-07-12] MEDS: Digoxin 0.125 MG TAB PO SCH (08:53)
[2019-07-12] MEDS: Fenofibrate Nanocrystallized 145 MG TAB PO SCH (08:53)
[2019-07-12] MEDS: Apixaban 5 MG TAB PO SCH (08:54)
[2019-07-12] MEDS: Amiodarone 200 MG TAB PO SCH (08:54)
[2019-07-12] MEDS: risperiDONE 0.25 MG TAB PO SCH (08:54)
[2019-07-12] MEDS: Furosemide 20 MG TAB PO SCH (08:54)
[2019-07-12] MEDS: Insulin Glargine 20 UNITS in Pre-Filled Syringe 1 EACH SC SCH (08:55)
--- NOTE | 2019-07-12 11:25 | PRG ---
DATE OF SERVICE: 07/12/2019 Ms. Farmer is sitting quietly in bed, in no distress. She is in normal sinus rhythm. She had a successful cardioversion yesterday per Cardiology and is ready for discharge. She is still having some orthostatic dizziness, which I think reflects the fact that she is 79 years old with atrial fibrillation and poor physical conditioning. In the event, pending final visit from Cardiology. We will discharge her hopefully later this afternoon. Job ID: [id number]
[2019-07-12 12:39] VITALS: BP 124/69
--- NOTE | 2019-07-15 01:15 | PQF ---
LIEN SOMMERS IRVIN [id number] [facility]-231 [id number] CLINICAL DOCUMENTATION CLARIFICATION FORM: POST DISCHARGE Addendum to original discharge summary date: ____ Late entry note date: __ DATE: 07/15/2019 ATTN: Carl Juarez Please exercise your independent, professional judgment in responding to the clarification form. Clinical indicators are provided on the bottom of this form for your review Please check appropriate box(s) to clarify if the following diagnosis has been ruled in or ruled out: ACUTE ON CHRONIC SYSTOLIC CHF [ ] Ruled in diagnosis [ ] Continue to treat [ ] Resolved [ ] Ruled out diagnosis [ ] Cannot rule out diagnosis [ ] Other diagnosis [ ] Unable to determine In addition, please specify: Present on Admission (POA): [ ] Yes [ ] No [ ] Unable to determine For continuity of documentation, please document condition throughout progress notes and discharge summary. Thank You. CLINICAL INDICATORS - SIGNS / SYMPTOMS / LABS PN 07/10 "acute on chronic systolic HF" HP 07/06 "presents for SOB" Chest Xray 07/05 "mild interstitial pulmonary edema" HP 07/06 "LE edema" HP 06/26 "BNP elevated likely secondary to Afib" Echo 07/09 "EF 35-40%" Labs BNP: 07/0531=462.2 RISK FACTORS HP 07/06-79 years old female HP 07/06-Afib HP 07/06-DM ED Notes 07/06-HTN PN 07/10-CAD PN 07/10-CKD PN 07/10-Former smoker TREATMENTS Collected 07/05-Chest Xray Collected 07/09-Echocardiogram Collected 07/11-CLAYTON OP note 07/11-Cardioversion MAR 07/06-Lasix 20mg IV (This form is maintained as a part of the permanent medical record) 2014 [employer]. All Rights Reserved [email or web address] [not provided] [email or web address]
--- NOTE | 2019-07-16 09:50 | DIS ---
DATE OF ADMISSION: 07/06/2019 DATE OF DISCHARGE: 07/12/2019 ADMITTING RESIDENT: Dr. Grant. ADMITTING ATTENDING: Oswaldo Kohli MD. DISCHARGE RESIDENT: Crystal Beckham MD. DISCHARGE ATTENDING: Carl Juarez MD. CONSULTS: Cardiology, Cardiac Rehab, Case Management, PT. IMAGING STUDIES: 1. Chest x-ray: Enlarged cardiac silhouette. Increased linear interstitial density in the perihilar regions in both lung bases which may signify mild interstitial edema in the proper clinical setting. Stable dual lead transvenous pacing device. No focal consolidation or alveolar edema. 2. Chest/thorax CTA: No evidence of pulmonary embolism. Diffuse areas of ground glass and air trapping within the lungs without focal consolidation most compatible with a small airway process. Dual lead pacemaker. 3. Carotid Doppler study: No sonographic evidence for hemodynamically significant internal carotid artery stenosis. 4. Echocardiogram: Ejection fraction is visually estimated at 35% to 40%. Moderately enlarged right ventricle cavity. Pacer wire visualized in right ventricle. Left atrium is mildly dilated. Severe mitral regurgitation. Mild aortic stenosis. Severe tricuspid regurgitation. Mild pulmonic regurgitation. 5. CLAYTON: Left atrial dilation of 5 to 5.3 cm in diameter. Normal left ventricular systolic function. EF of 50% to 55%. Pacemaker leads noted in the right atrium and right ventricle without evidence of vegetations or thrombus. Smoke in the left atrium and left atrial appendage. No evidence of thrombus formation in the left atrial appendage. Severe tricuspid valve regurgitation. Severe mitral valve regurgitation. Normally functioning aortic valve without any evidence of stenosis or regurgitation. PRIMARY DIAGNOSES: Paroxysmal atrial fibrillation, cellulitis. SECONDARY DIAGNOSES: Reduced ejection fraction heart failure, diabetes, dementia. DISCHARGE MEDICATIONS: 1. Amiodarone 400 mg p.o. b.i.d. 2. Apixaban 5 mg p.o. b.i.d. 3. Atorvastatin 80 mg p.o. at bedtime. 4. Carvedilol 12.5 mg p.o. b.i.d. 5. Digoxin 0.125 mg p.o. daily. 6. Donepezil 10 mg p.o. at bedtime. 7. Fenofibrate 160 mg p.o. daily. 8. Furosemide 20 mg p.o. daily. 9. Tresiba 20 units subcu b.i.d. 10. Levothyroxine 137 mcg p.o. daily. 11. Liothyronine sodium 5 mcg p.o. daily. 12. Meclizine 12.5 mg p.o. b.i.d. p.r.n. 13. Potassium chloride 20 mEq p.o. daily. 14. Risperidone 0.5 mg p.o. at bedtime. 15. Sertraline 50 mg p.o. daily. DISCONTINUED MEDICATIONS: 1. Amiodarone 200 mg p.o. daily. 2. Apixaban 2.5 mg p.o. b.i.d. 3. Acetaminophen 650 mg p.o. daily. 4. Celexa. 5. Ceftriaxone. 6. Digoxin 0.5 mg IV. 7. Diltiazem IV. 8. Labetalol 10 mg IV. 9. Metoprolol 50 mg p.o. b.i.d. HISTORY OF PRESENT ILLNESS/HOSPITAL COURSE: The patient is an 79-year-old female with a past medical history of paroxysmal atrial fibrillation, CHF, diabetes, dementia, who presented with shortness of breath and was diagnosed with atrial fibrillation with RVR. She was started on an IV diltiazem drip for heart rate control. The son has been very busy in his personal life taking care both of his mother and his father and admitted that he may have forgotten a few doses of her home digoxin. The patient was re-loaded with digoxin and her digoxin levels were continuously monitored. She did convert back to NSR. There was plan for the patient to be discharged on 07/08, but at that point, she had become dizzy and her blood pressure started to elevate. She was found to have converted back to atrial fibrillation. Cardiology was consulted and echo was ordered. A stat EKG was also ordered that showed atrial pacing, and stat troponins were ordered that were negative. For the next several days, she worked with Cardiology who changed a few of her medications including her amiodarone dosing, changing metoprolol to carvedilol, and increased her apixaban dosing. She was then found to have atrial flutter, so she also had a CLAYTON with cardioversion on 07/11. This converted her into normal sinus rhythm, though she then reconverted into atrial fibrillation. During the hospitalization she did report of some dizziness that resolved with meclizine. On the day of discharge, her rate had been well controlled, and she was discharged from a Cardiology standpoint because her medication regimen was controlling her cardiac rate, and she no longer had episodes of atrial fibrillation with RVR. On the day of discharge, the patient was evaluated and found to be in stable condition. Her rate was well controlled and she denied dizziness or headaches at that time. She was encouraged to continue her medications and to follow up with her primary care provider and with her assistant account manager on an outpatient basis. DISPOSITION: Stable. DISCHARGE INSTRUCTIONS: 1. Location: skilled nursing. 2. Diet: Heart healthy. 3. Activity: As tolerated. 4. Follow up with [facility], Dr. Bonner in 14 days, and with Dr. Mack on July 16 at 4 p.m. Job ID: [id number] [facility]USIliana
== END 2019-07-12 15:54 | disposition home health service (06) | DRG 309 ==
LOC: ERS 21:18 → ERHOLD 07-06 00:48 → 2SW 07-06 07:25 → OBSVTOIN 07-06 12:59 → 2SW 07-07 15:08
PROVIDERS: ADMIT Family Medicine; ATTEND Family Medicine
PROC: 3E0234Z Introduction of Serum, Toxoid and Vaccine into Muscle, Percutaneous Approach (ICD-10-PCS; 2019-07-07)
PROC: B24BZZ4 Ultrasonography of Heart with Aorta, Transesophageal (ICD-10-PCS; 2019-07-11)
PROC: 5A2204Z Restoration of Cardiac Rhythm, Single (ICD-10-PCS; principal; 2019-07-12)
DX: I48.0 Paroxysmal atrial fibrillation (principal); L03.115 Cellulitis of right lower limb; Z23 Encounter for immunization; I13.0 Hypertensive heart and chronic kidney disease with heart failure and stage 1 through stage 4 chronic kidney disease, or unspecified chronic kidney disease; I50.22 Chronic systolic (congestive) heart failure; E03.9 Hypothyroidism, unspecified; F32.9 Major depressive disorder, single episode, unspecified; F41.9 Anxiety disorder, unspecified; I25.10 Atherosclerotic heart disease of native coronary artery without angina pectoris; E78.00 Pure hypercholesterolemia, unspecified; F03.90 Unspecified dementia, unspecified severity, without behavioral disturbance, psychotic disturbance, mood disturbance, and anxiety; E66.01 Morbid (severe) obesity due to excess calories; I08.1 Rheumatic disorders of both mitral and tricuspid valves; I35.0 Nonrheumatic aortic (valve) stenosis; E11.22 Type 2 diabetes mellitus with diabetic chronic kidney disease; N18.9 Chronic kidney disease, unspecified; I48.92 Unspecified atrial flutter; Z79.02 Long term (current) use of antithrombotics/antiplatelets; Z79.84 Long term (current) use of oral hypoglycemic drugs; Z79.899 Other long term (current) drug therapy; Z95.0 Presence of cardiac pacemaker; Z90.49 Acquired absence of other specified parts of digestive tract; Z90.710 Acquired absence of both cervix and uterus; Z87.891 Personal history of nicotine dependence; Z68.27 Body mass index [BMI] 27.0-27.9, adult; Z91.19 Patient's noncompliance with other medical treatment and regimen
CPT/HCPCS: 36415; 36416; 71045; 71275; 80048; 80053; 80061; 80162; 81003; 81015; 82565; 83880; 84439; 84443; 84484; 85014; 85018; 85025; 85049; 85379; 92960; 93005; 93010; 93306; 93312; 93880; 94760; 96365; 96366; 96368; 96375; 99292; J0696; J1160; J1815; J1940; J2405; J2704; J3475; J3490; J8597